=== PATIENT | female | born 1940 | race Caucasian/White ===

== ENCOUNTER 2016-11-28 15:48 | Inpatient (IN) | payer OTHER, MEDICARE ==
[~2016-11-28] VITALS: Ht 167.6 cm; Wt 68.0 kg
--- NOTE | 2016-11-28 17:15 | ED GENERAL ADULT ---
History of Present Illness General Chief Complaint: General Adult Stated Complaint: BIBA FOR R LEG PAIN X 2 MONTHS Source: patient Exam Limitations: no limitations Allergies Coded Allergies: Penicillins (11/28/16) Reconcile Medications Aspirin (Aspirin*) 81 MG TAB.CHEW 81 MG PO DAILY HEART/BLOOD (Reported) Propranolol HCl 20 MG TABLET 0.5 TAB PO DAILY BP (Reported) Triamterene/Hydrochlorothiazid (Triamterene-Hctz 75-50 MG Tab) 75 MG-50 MG TABLET 0.5 TAB PO DAILY BP (Reported) Triage Note: BBA, C/O RIGHT THIGH PAIN THAT STARTED IN August WAS BENDING OVER PUTTING ON [place] AND HEARD A POP IN RIGHT LEG THAT RADIATES TO R KNEE INCREASED PAIN 9/10 WHEN STANDING, NOTED 2 PLUS PITTONG EDEMA IN LOWER EXT, DID HAVE BREAST CA IN 2008 WITH A LUMP REMOVED BUT NO CHEMO, SELF DX NOW STATING I HAVE RIGHT SIDED BREAST CA AGAIN. Triage Nurses Notes Reviewed? yes Onset: Gradual Duration: getting worse Severity: severe Severity Numbers: 7 HPI: Patient is a 76 year old female with a past medical history of right breast cancer in which patient does presents with her retired [employer] Dr. Esparza who currently is just a friend who it is noted that in 2008 patient had ultrasounds and lumpectomy confirming carcinoma the right breast however patient declined any invasive therapy or treatment. Patient states that the right breast has progressively worsened and now is swollen and discharging of purulence and blood in which she changes her wounds once a day. Patient states that she's lost 45 pounds in the past year. Patient also states that in the fall of last year she twisted her right hip and since he's been complaining of worsening pain to the right hip all the way down to the right leg into her toes. Patient states that she is unable to ambulate due to significant pain. Patient states that from time to time she is twisted her right leg made her symptoms worse. Patient was using CANE however, Patient states in the past few days the right hip pain has been worse the patient is unable to tolerate weightbearing activities Patient was brought in by ambulance. She lives in a private residence and patient is DNR/DNI (JE RENE,ELIZABETH) Vital Signs & Intake/Output Vital Signs & Intake/Output Vital Signs Date Time Temp Pulse Resp B/P Pulse O2 O2 Flow FiO2 Ox Delivery Rate 11/28 2027 96.3 107 18 186/80 95 Room Air 11/28 1554 96.7 96 20 160/80 96 Room Air Past History Travel History Traveled to [place] past 21 day No Medical History Any Pertinent Medical History? see below for history Cancer(s): breast cancer Surgical History Surgical History: non-contributory Family History Hx Contributory? No (ELIZABETH ROCHA) Review of Systems Review of Systems Constitutional: Reports: see HPI. EENTM: Reports: no symptoms. Respiratory: Reports: no symptoms. Cardiovascular: Reports: no symptoms. GI: Reports: no symptoms. Genitourinary: Reports: no symptoms. Musculoskeletal: Reports: see HPI. Skin: Reports: see HPI. Neurological/Psychological: Reports: no symptoms. Hematologic/Endocrine: Reports: no symptoms. Immunologic/Allergic: Reports: no symptoms. All Other Systems: Reviewed and Negative (ELIZABETH ROCHA) Physical Exam Physical Exam General Appearance: no apparent distress, alert, comfortable Comments: Well-developed well-nourished person in no acute distress HEENT: Normal EENT exam, Neck: Supple, no lymphadenopathy, normal range of motion without pain or tenderness Back: Nontender, no CVA tenderness. Cardiovascular: Regular rate and rhythms no murmurs rubs or gallops, normal JVP Respiratory: Chest nontender. No respiratory distress.breath sounds clear to auscultation bilaterally Abdomen: Soft, nontender nondistended, no appreciable organomegaly. Normal bowel sounds. No ascites Extremity: Right leg normal inspection dermatomes intact Right hip generalized point tenderness noted, patient unable to tolerate straight leg raise Right hip normal inspection decreased active range of motion noted generalized point tenderness noted Neuro: Alert oriented x3, motor sensory normal, Skin: No appreciable rash on exposed skin, skin is warm and dry. Psych: Mood and affect is normal, memory and judgment is normal. Core Measures ACS in differential dx? No CVA/TIA Diagnosis: No Severe Sepsis Present: No Septic Shock Present: No Diagram Body: 1) Significant large macerated open ulcer to the right breast with mild active discharge and bleeding severe point tenderness noted (ELIZABETH ROCHA) Progress Differential Diagnoses I considered the following diagnoses in my evaluation of the patient: [ Metastasis, pathological fracture, cancer, electrolyte abnormality, sepsis,] Diagnostic Imaging: Viewed by Me: CT Scan. Radiology Impression: acute abnormality Initial ED EKG: none Comments: PATIENT: SUSAN POLO PRESENT AGE: 76 PATIENT ACCOUNT NO: [id number] : 40 LOCATION: [facility] ORDERING PHYSICIAN: ELIZABETH RENE SERVICE DATE: 11/28/16 EXAM TYPE: CAT - CT ABD & PELVIS W IV CONTRAST; CT CHEST W IV CONTRAST; CT LOWER EXT W IV CONTRAST EXAMINATION: CT CHEST,ABDOMEN, PELVIS AND RIGHT LOWER EXTREMITY WITH CONTRAST CLINICAL INFORMATION: The patient received a diagnosis of breast cancer on the right side a few years ago but did not undergo any therapy at that time. Now presents with question breast necrosis and pain and pain in the right leg, femur to toes. goCOMPARISON: None TECHNIQUE: Multidetector volumetric imaging was performed of the chest, abdomen, and pelvis after the IV administration of 94 mL of Optiray 320 intravenous contrast. Sagittal and coronal reformatted images were obtained on the technologist's workstation. Additional scans were obtained of the right lower extremity from right hip to the right foot with corresponding reformats obtained at the workstation. DLP: 3649 mGy-cm FINDINGS: CHEST: Not only is there a large spiculated mass in the right breast measuring over 6 cm associated with skin thickening and a satellite nodule but numerous metastatic lymph nodes extending to the right axilla and chest wall. Small nodes are seen in the left axilla and a slightly lobulated 1.8 cm diameter mass is located in the left breast. The lungs are clear showing no sign of metastatic disease. The mediastinum or hilar regions are normal. There is no pleural effusion or evidence of pleural masses. LIVER, GALLBLADDER, AND BILIARY TREE: Liver is normal in size and attenuation. A 1 cm hypodense nodule in Couinaud segment 8 is most likely benign and represents a hemangioma due to its relationship with the adjacent hepatic vein. Bile ducts are not dilated. Gallbladder contains gallstone`(s) and the gallbladder wall is slightly thickened but otherwise unremarkable. PANCREAS: Atrophic. SPLEEN: No focal disease. ADRENAL GLANDS: Unremarkable. KIDNEYS AND URETERS: Left kidney is unremarkable. A large exophytic enhancing mass measuring 5.8 cm in diameter arises from the lower pole of the right kidney This represents a primary renal cell carcinoma. There is no hydronephrosis and the ureters are not dilated. BLADDER: Distended and normal. GASTROINTESTINAL TRACT: Multiple diverticula arise in the left colon but there is no sign of diverticulitis. The stomach and small bowel are normal. The appendix is normal. There is no free fluid. ABDOMINAL WALL: No metastases. LYMPH NODES: There is no bulk adenopathy in the abdomen or pelvis. VASCULAR: The aorta is arteriosclerotic. PELVIC VISCERA: Uterus is postmenopausal in size. The adnexa are normal. OSSEOUS STRUCTURES: The lytic bone metastases to the vertebral bodies and posterior elements of the spine are too numerous to count at all levels. Metastatic osteolytic foci are seen in the pelvis and in the right femoral neck and proximal left femur. Right lower extremity: There is total destruction of the intertrochanteric region of the right hip and adjacent osseous lytic metastases to the cortex of the proximal femur. In fact, there is probably in all likelihood pathologic fracture(s) at this location. The knee joint and leg are probably normal. IMPRESSION: 1. Large right sided breast cancer with satellite nodule and multiple bina metastases to the right axilla. Breast nodule left side. 2. Renal cell carcinoma, right kidney. (Metachronous primary) 3. Cholelithiasis. Probable chronic cholecystitis. 4. 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 5. Pathologic fracture of the proximal right femur. DICTATED BY: ASHLEIGH ROLDAN MD DATE/TIME DICTATED:11/28/162015 GLASS BEVELLER:JESSICA (ELIZABETH ROCHA) Plan of Care: Orders Procedure Date/time Status Regular Diet 11/29 B Active Saline Lock 11/28 2313 Active Misc Message 11/28 2313 Active ED Holding Orders 11/28 2313 Active Vital Signs 11/28 2313 Active Code Status 11/28 2313 Active Patient Data 11/[address] in observation 11/[address] in observation 11/28 2255 Active Intake & Output 11/28 1846 Active URINALYSIS 11/28 171 Complete COMPREHENSIVE METABOLIC PANEL 11/28 1712 Complete CBC WITHOUT DIFFERENTIAL 11/28 1712 Complete Current Medications Sig/Matty Start time Last Medication Dose Stop Time Status Admin Diazepam 5 MG ONCE ONE 11/28 173 CAN (Valium) 11/28 1731 Laboratory Tests 11/28/162022: Urine Color STRAW, Urine Clarity CLEAR, Urine pH 6.0, Ur Specific Barnum 1.010, Urine Protein NEG, Urine Ketones NEG, Urine Nitrite NEG, Urine Bilirubin NEG, Urine Urobilinogen 0.2, Ur Leukocyte Esterase NEG, Ur Microscopic EXAM NOT REQUIRED, Urine Hemoglobin NEG, Urine Glucose NEG 11/28/16 1734: Anion Gap 14, Estimated GFR > 60, BUN/Creatinine Ratio 28.9 H, Glucose 91, Calcium 12.0 H, Total Bilirubin 1.2, AST 59 H, ALT 38, Alkaline Phosphatase 123, Total Protein 7.7, Albumin 4.4, Globulin 3.3, Albumin/Globulin Ratio 1.3, CBC w Diff NO MAN DIFF REQ, RBC 4.38, MCV 93.6, MCH 30.8, RDW 13.8, MPV 9.0, Gran % 79.2 H, Lymphocytes % 9.6 L, Monocytes % 9.9 H, Eosinophils % 0.7, Basophils % 0.6, Absolute Granulocytes 9.9 H, Absolute Lymphocytes 1.2, Absolute Monocytes 1.2 H, Absolute Eosinophils 0.1, Absolute Basophils 0.1, PUBS MCHC 32.9 L Patient currently on initial examination was in no apparent distress and declines pain medications however it was noted to me the patient had muscle spasms in the right leg causing her to have severe pain which Valium significantly improved symptoms. After CT scan was resulted Dr. Rodriguez and I had a long discussion with patient about results of concern to metastasis and pathological fracture in which patient was given options for disposition planning which patient was requesting evaluation of hospice. Patient was given another dose of Valium due to recurrence of pain and muscle spasms. I gave CT scan report and went over all results. To the right breast nursing staff applied TEFLA PAD AND TAPE FOR ACTIVE DISCHARGE I also placed a call to Dr. Esparza who is power of securities attorney and was made aware of results and disposition plan Case management will set up hospice evaluation tomorrow (ELIZABETH ROCHA) Departure Departure Disposition: STILL A PATIENT Condition: Stable Clinical Impression Primary Impression: Carcinoma of breast metastatic to bone Secondary Impressions: Pathologic fracture of femur Referrals: ASH CASANOVA DO (PCP/Family) Departure Forms: Customer Survey General Discharge Information Observation Note Spoke With: TRES LACY MD Physician Advisor Notified: TRENA MCKEON,TORRES Jimenez Place Patient In: Non-ED OBS Care Area Rationale for Observation: My rational for observation is as follows [Dr. Rodriguez discussed patient with Dr. LACY who agrees with ADMISSION observation for concerns of possible hospice placement. Patient requires COMFORT measures, IV pain management. Outpatient treatment due to concerning diagnosis of pathological hip fracture and metastasis would be medically harmful]. (ELIZABETH ROCHA) PA/JOB SITE SUPERINTENDENT Co-Sign Statement Statement: ED Attending supervision documentation- [X] I saw and evaluated the patient. I have also reviewed all the pertinent lab results and diagnostic results. I agree with the findings and the plan of care as documented in the PA's/JOB SITE SUPERINTENDENT's documentation. [] I have reviewed the ED Record and agree with the PA's/JOB SITE SUPERINTENDENT's documentation. [] Additions or exceptions (if any) to the PAs/JOB SITE SUPERINTENDENT's note and plan are summarized below: [] (CARMEN MCKEON,CARTER Aviles) PA/JOB SITE SUPERINTENDENT Co-Sign Statement Statement: ED Attending supervision documentation- [X] I saw and evaluated the patient. I have also reviewed all the pertinent lab results and diagnostic results. I agree with the findings and the plan of care as documented in the PA's/JOB SITE SUPERINTENDENT's documentation. [] I have reviewed the ED Record and agree with the PA's/JOB SITE SUPERINTENDENT's documentation. [] Additions or exceptions (if any) to the PAs/JOB SITE SUPERINTENDENT's note and plan are summarized below: [[place] discussion with the patient regarding her symptoms and the findings. Patient states that she has no family and no children and she does have) however she does not want to be a burden on them. Patient states that she refused to have chemotherapy and radiation 10 years ago and she declined and refused to have it again. Patient understands the prognosis and wishes just to be kept comfortable and not to be a burden on anybody. At this point patient will be placed in 23 hour observation and hospice consultation will be obtained.] (BRENDAN MCKEON,RAINA Jimenez) Critical Care Note Critical Care Note Critical Care Time: non-applicable (ELIZABETH ROCHA)
[2016-11-28] MEDS ORDERED: PROPRANOLOL HCL20 M1 PO (17:41)
[2016-11-28] MEDS ORDERED: HYDROCHLOROTHIA50 M1 PO (17:43)
[2016-11-28] MEDS ORDERED: ASPIRIN81 M4 PO (17:44)
--- NOTE | 2016-11-28 17:45 | NUR ---
CHANGED DRESSING TO RIGHT BREAST
--- NOTE | 2016-11-28 18:00 | NUR ---
REG MEAL GIVEN TO PT
[2016-11-28 18:01] LABS: ABSOLUTE BASOPHIL COUNT 0.1 /CUMM (0.0-0.2); ABSOLUTE EOSINOPHIL COUNT 0.1 /CUMM (0.0-0.7); ABSOLUTE GRANULOCYTE CT 9.9 /CUMM (1.4-6.5); ABSOLUTE LYMPH COUNT 1.2 /CUMM (1.2-3.4); ABSOLUTE MONOCYTE COUNT 1.2 /CUMM (0.10-0.60); BASOPHIL % 0.6 % (0.0-2.0); EOSINOPHIL % 0.7 % (0-5); GRANULOCYTE % 79.2 % (42.2-75.2); MEAN CORPUSCULAR HGB 30.8 PG (27.0-31.0); MEAN CORPUSCULAR HGB CONC 32.9 G/DL (33.0-37.0); MEAN CORPUSCULAR VOLUME 93.6 FL (81.0-99.0); PLATELET COUNT 284 /CUMM (130-400); RBC DISTRIBUTION WIDTH 13.8 % (11.5-14.5); RED BLOOD CELL CT 4.38 /CUMM (4.20-5.40); WHITE BLOOD CELL COUNT 12.5 /CUMM (4.8-10.8)
--- NOTE | 2016-11-28 18:44 | NUR ---
TO CAT SCAN
--- NOTE | 2016-11-28 20:26 | NUR ---
URINE TRIO COLLECTED AND SENT TO THE LAB
--- NOTE | 2016-11-28 21:34 | CT SCAN REPORT ---
EXAMINATION: CT CHEST,ABDOMEN, PELVIS AND RIGHT LOWER EXTREMITY WITH CONTRAST CLINICAL INFORMATION: The patient received a diagnosis of breast cancer on the right side a few years ago but did not undergo any therapy at that time. Now presents with question breast necrosis and pain and pain in the right leg, femur to toes. goCOMPARISON: None TECHNIQUE: Multidetector volumetric imaging was performed of the chest, abdomen, and pelvis after the IV administration of 94 mL of Optiray 320 intravenous contrast. Sagittal and coronal reformatted images were obtained on the technologist's workstation. Additional scans were obtained of the right lower extremity from right hip to the right foot with corresponding reformats obtained at the workstation. DLP: 3649 mGy-cm FINDINGS: CHEST: Not only is there a large spiculated mass in the right breast measuring over 6 cm associated with skin thickening and a satellite nodule but numerous metastatic lymph nodes extending to the right axilla and chest wall. Small nodes are seen in the left axilla and a slightly lobulated 1.8 cm diameter mass is located in the left breast. The lungs are clear showing no sign of metastatic disease. The mediastinum or hilar regions are normal. There is no pleural effusion or evidence of pleural masses. LIVER, GALLBLADDER, AND BILIARY TREE: Liver is normal in size and attenuation. A 1 cm hypodense nodule in Couinaud segment 8 is most likely benign and represents a hemangioma due to its relationship with the adjacent hepatic vein. Bile ducts are not dilated. Gallbladder contains gallstone`(s) and the gallbladder wall is slightly thickened but otherwise unremarkable. PANCREAS: Atrophic. SPLEEN: No focal disease. ADRENAL GLANDS: Unremarkable. KIDNEYS AND URETERS: Left kidney is unremarkable. A large exophytic enhancing mass measuring 5.8 cm in diameter arises from the lower pole of the right kidney This represents a primary renal cell carcinoma. There is no hydronephrosis and the ureters are not dilated. BLADDER: Distended and normal. GASTROINTESTINAL TRACT: Multiple diverticula arise in the left colon but there is no sign of diverticulitis. The stomach and small bowel are normal. The appendix is normal. There is no free fluid. ABDOMINAL WALL: No metastases. LYMPH NODES: There is no bulk adenopathy in the abdomen or pelvis. VASCULAR: The aorta is arteriosclerotic. PELVIC VISCERA: Uterus is postmenopausal in size. The adnexa are normal. OSSEOUS STRUCTURES: The lytic bone metastases to the vertebral bodies and posterior elements of the spine are too numerous to count at all levels. Metastatic osteolytic foci are seen in the pelvis and in the right femoral neck and proximal left femur. Right lower extremity: There is total destruction of the intertrochanteric region of the right hip and adjacent osseous lytic metastases to the cortex of the proximal femur. In fact, there is probably in all likelihood pathologic fracture(s) at this location. The knee joint and leg are probably normal. IMPRESSION: 1. Large right sided breast cancer with satellite nodule and multiple bina metastases to the right axilla. Breast nodule left side. 2. Renal cell carcinoma, right kidney. (Metachronous primary) 3. Cholelithiasis. Probable chronic cholecystitis. 4. 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 5. Pathologic fracture of the proximal right femur.
--- NOTE | 2016-11-28 21:59 | NUR ---
AFTER VALIUM C/O WEIGHT BEARING AT 5/10 ON PAIN SCALE
[2016-11-28] MEDS ORDERED: TRIAMTERENE-HC1 EAC2 PO (22:29)
--- NOTE | 2016-11-28 23:00 | NUR ---
Case Mgmnt TSF: I placed a call to [facility] to please call me back. Ayana is the clinical rehabilitation specialist nurse. CM continuing to follow.
--- NOTE | 2016-11-28 23:05 | NUR ---
Case Mgmnt TSF: I received a call back from Ayana at [facility]. I asked them to please meet with the patient tomorrow. Patient's request is to come and see her after 1400pm as her best friend will be there with her. She would like them to be there with her. I passed along the message to [facility]. CM continuing to follow.
--- NOTE | 2016-11-28 23:45 | NUR ---
PLACED IN HOSP BED. Sudha GUTIERREZ SATURATED W/BLOODY SERO-SANG DRAINAGE--CHANGED AND DEEPAK GUTIERREZ PLACED. AWAITING HOUSE STAFF.
--- NOTE | 2016-11-29 01:37 | NUR ---
HOUSE STAFF HERE TO EILEEN. Sudha BREAST DRSG CHANGED--TELFA W/PAPER TAPE APPLIED.
--- NOTE | 2016-11-29 01:50 | NUR ---
ASSISTED OUT OF BED ONTO COMMODE USING WALKER. VOIDED 300ML
--- NOTE | 2016-11-29 02:16 | History & Physical ---
MONIKA JIMENES MD 11/29/16 0215: General Information and HPI MD Statement: I have seen and personally examined SUSAN POLO and documented this H&P. The patient is a 76 year old F who presented with a patient stated chief complaint of []. Source of Information: patient History of Present Illness: Patient is a 76-year-old female with significant past medical history of hypertension, breast cancer in 2008, status post lumpectomy (without any radiotherapy and chemotherapy), recurrence and metastasis to bone presented with chief c/o unable to get up from bed. In ED , CT chest, abdomen and pelvis was done which showed metastases to right axilla, osteolytic bone metastasis, pathological fracture of proximal right femur and renal cell carcinoma of the right kidney. After seeing the CT scan, ED, discussed with the patient about her clinical status and the prognosis of the disease and goals of care. The patient understood her medical condition and decided to change her CODE STATUS to comfort measure and requested for hospice evaluation. She told that her electronics installer, Dr. Esparza is her power of airline operations agent. She want to wait for her to decide with hospice care Allergies/Medications Allergies: Coded Allergies: Penicillins (11/28/16) Home Med list Aspirin (Aspirin*) 81 MG TAB.CHEW 81 MG PO DAILY HEART/BLOOD (Reported) Propranolol HCl 20 MG TABLET 0.5 TAB PO DAILY BP (Reported) Triamterene/Hydrochlorothiazid (Triamterene-Hctz 75-50 MG Tab) 75 MG-50 MG TABLET 0.5 TAB PO DAILY BP (Reported) Past History Travel History Traveled to [place] past 21 day No Medical History Neurological: NONE EENT: NONE Cardiovascular: hypertension Respiratory: NONE Gastrointestinal: NONE Hepatic: NONE Renal: NONE Musculoskeletal: NONE Psychiatric: NONE Endocrine: NONE Cancer(s): breast cancer Surgical History Surgical History: lumpectomy Past Family/Social History Psychosocial History ETOH Use: denies use Review of Systems Review of Systems Constitutional: Reports: weakness. EENTM: Reports: hearing changes. Cardiovascular: Denies: chest pain, edema, orthopena, palpitations, peripheral edema, syncope. Respiratory: Denies: cough, hemoptysis, orthopnea, short of breath, sputum production, stridor, wheezing. GI: Denies: abdominal pain, bloating, constipation, diarrhea. Genitourinary: Denies: no symptoms. Musculoskeletal: Reports: back pain, joint pain. Skin: Denies: no symptoms. Neurological/Psychological: Reports: anxiety, depressed. Exam & Diagnostic Data Last 24 Hrs of Vital Signs/I&O Vital Signs Date Time Temp Pulse Resp B/P Pulse O2 O2 Flow FiO2 Ox Delivery Rate 11/29 0005 97.8 90 16 170/77 97 Room Air Room Air 11/28 2027 96.3 107 18 186/80 95 Room Air 11/28 1554 96.7 96 20 160/80 96 Room Air Intake & Output 11/29 0800 11/29 0000 11/28 1600 Intake Total Output Total 400 Balance -400 Output, Urine 400 Patient 68.039 kg Weight Physical Exam General Appearance Alert, Oriented X3, Cooperative, No Acute Distress Skin No Rashes, No Breakdown, there is a big open ulcer on right side of chest, secondary to local metasasis to skin. HEENT Atraumatic, PERRLA, EOMI Neck Supple, No JVD Cardiovascular Normal S1, Normal S2, murmur Lungs Clear to Auscultation, Normal Air Movement Abdomen Soft, No Tenderness Neurological Normal Speech Extremities No Clubbing, No Cyanosis, No Edema Vascular Normal Pulses, Pulses Symmetrical Last 24 Hrs of Labs/[place]: Laboratory Tests 11/28/162022: Urine Color STRAW, Urine Clarity CLEAR, Urine pH 6.0, Ur Specific [place] 1.010, Urine Protein NEG, Urine Ketones NEG, Urine Nitrite NEG, Urine Bilirubin NEG, Urine Urobilinogen 0.2, Ur Leukocyte Esterase NEG, Ur Microscopic EXAM NOT REQUIRED, Urine Hemoglobin NEG, Urine Glucose NEG 11/28/16 1734: Anion Gap 14, Estimated GFR > 60, BUN/Creatinine Ratio 28.9 H, Glucose 91, Calcium 12.0 H, Total Bilirubin 1.2, AST 59 H, ALT 38, Alkaline Phosphatase 123, Total Protein 7.7, Albumin 4.4, Globulin 3.3, Albumin/Globulin Ratio 1.3, CBC w Diff NO MAN DIFF REQ, RBC 4.38, MCV 93.6, MCH 30.8, RDW 13.8, MPV 9.0, Gran % 79.2 H, Lymphocytes % 9.6 L, Monocytes % 9.9 H, Eosinophils % 0.7, Basophils % 0.6, Absolute Granulocytes 9.9 H, Absolute Lymphocytes 1.2, Absolute Monocytes 1.2 H, Absolute Eosinophils 0.1, Absolute Basophils 0.1, PUBS MCHC 32.9 L Diagnostic Data Other Results CT chest, abdomen and pelvis - 1. Large right sided breast cancer with satellite nodule and multiple bina metastases to the right axilla. Breast nodule left side. 2. Renal cell carcinoma, right kidney. (Metachronous primary) 3. Cholelithiasis. Probable chronic cholecystitis. 4. 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 5. Pathologic fracture of the proximal right femur. Assessment/Plan Assessment: Patient is a 76-year-old female with significant past medical history of hypertension, breast cancer in 2008, status post lumpectomy (without any radiotherapy and chemotherapy), recurrence and metastasis to bone presented with chief c/o unable to get up from bed. Vital signs at the time of admission -temperature 96.7, pulse 96, respiratory rate 20, blood pressure 160/80, SPO2 96% on room air Problem list - 1. Waiting for hospice evaluation 2. Right-sided breast cancer with satellite nodule and multiple metastasis to bone 3. Fracture of the proximal right femur 4. Cholelithiasis with chronic cholecystitis 5. Hypertension 6. Renal cell carcinoma Pertinent labs - WBC 12.5,Na -136, chloride 95, BUN 26, urine normal Plan- * As after discussion with ED physician, patient decided for comfort care and waiting for hospice evaluation. * We will start her on Xanax 0.5 mg 3 times a day\ * We will give pain medication according to the pain score * We'll also continue antihypertensive medication including amlodipine, but avoid furosemide. * Patient wanted some help with the sleep, we will start her on melatonin and if needed, then remelteon. As Ranked By This Provider Problem List: 1. Breast cancer metastasized to bone 2. Hypertension 3. Renal cell carcinoma 4. Closed femur fracture Core Measures/Miscellaneous Acute Coronary Syndrome ACS Diagnosis: No Cerebrovascular Accident CVA/TIA Diagnosis: No Congestive Heart Failure CHF Diagnosis: No Venous Thromboembolism VTE Risk Factors: Age > 40 VTE Prophylaxis Ordered Inpt: Mechanical (ALPS/TEDS) [facility] prophylaxis d/t: No contraindications No VTE Pharm Prophylaxis d/t: No contraindications VTE Diagnosis: No VTE Type: NONE VTE Confirmed by (Test): NONE Severe Sepsis Severe Sepsis Present: No Septic Shock Septic Shock Present: No Miscellaneous Documentation Attending Case Discussed With: MANN MCKEON,MOHIT Mckeon Primary Care Physician: ASH CASANOVA DO Patient sees these Specialists [employer] Attendant Oncologist Level of Patient Care: General Medicine HAYDEN ESQUIVEL 11/29/16 0500: Resident Review Statement Resident Statement: discussed with spring internship Other Findings: HPI as above She is 76-year-old woman with past medical history of hypertension, right breast cancer status post lumpectomy in 2008. She did not get any chemotherapy or radiotherapy for that now with recurrent right breast cancer with bony metastasis not opt for any treatment. History of right leg pain after it got twisted in last summer. Now presented in ER because she was not able to get up from sitting position and worsening pain in her right leg. CT abdomen and pelvis, chest and right lower extremity with IV contrast was done in ER showing large right-sided breast cancer and multiple bina metastases to the right axilla, renal cell carcinoma, right kidney, cholelithiasis, osteolytic bone metastases and fracture of proximal right femur. ER physician had a long discussion with patient about CAT scan results and goals of care. Patient wanted to be comfortable and requested hospice evaluation. STEREOPTIC PROJECTION TOPOGRAPHER Dr. Esparza who currently is just a friend is power of airline operations agent for her. Patient wants her friend to be present in hospital with her during hospice evaluation and consultation. She was given Valium x 2 in ER. Currently patient offers no complaints. She wants something to sleep. Upon examination of her right breast it was decided that it's reasonable to start her on by mouth antibiotics for wound infection but patient refused. We will continue her aspirin and propranolol. Blood pressure management with amlodipine. Hospice evaluation in a.m. Xanax 0.5 mg 3 times a day as needed for anxiety. Patient is comfort care for now. TRES LACY 11/29/16 0531: Attending MD Review Statement Attending Statement Attending MD Statement: examined this patient, discuss w/resident/PA/CERTIFIED NURSING ATTENDANT, agreed w/resident/PA/CERTIFIED NURSING ATTENDANT, reviewed EMR data (avail), reviewed images, amended to note Attending Assessment/Plan: CC: R leg pain PMH: HTN, breast cancer Patient came to ER for right leg pain with her retired STEREOPTIC PROJECTION TOPOGRAPHER, Dr. Esparza, who currently is just a friend and her POA. Patient states that her pain is been chronic but acutely worsened this morning and she could not get up from the bed. At baseline she was moving with the help of walker. She had history of breast cancer in 2008 for which she underwent lumpectomy but no chemotherapy or radiation, did not follow-up thereafter. Patient noticed recurrence of right breast cancer at home since August but did not seek any medical help. Patient does not have any family, recently, does not want to get treated for this cancer. Patient admits 45 pounds weight loss in the past year. She recalls multiple trivial trauma right lower extremity, for which she did not seek any medical attention. Vitals: Temperature, pulse, respiratory rate, O2 saturation within acceptable range. Blood pressure mildly elevated. On examination anxious, no acute distress , neck supple, no lymphadenopathy, no JVD, mucosa dry. CVS: S1-S2, RRR. RS: Clear to auscultate bilaterally. Abdomen: Soft, nontender, bowel sounds present. No pedal edema, peripheral perfusion and pulses normal. Patient has right breast lesion around the nipple, with skin excoriation and purulent discharge. Labs: WBC 12.5, sodium 136, BUN 26, calcium 12.0, AST 59. CT abdomen and pelvis with IV contrast, CT chest with IV contrast, CT lower extremity with IV contrast was obtain in ER : 1. Large right sided breast cancer with satellite nodule and multiple bina metastases to the right axilla. Breast nodule left side. 2. Renal cell carcinoma, right kidney. (Metachronous primary) 3. Cholelithiasis. Probable chronic cholecystitis. 4. 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 5. Pathologic fracture of the proximal right femur. A and P #1 patient has breast cancer and renal cell carcinoma right kidney, with multiple bone metastases, pathological fracture, hypercalcemia. A detailed discussion was held by ER physician with patient about the disease, prognosis and goal of care. Patient mentions comfort care measures only, and asks for hospice evaluation. Continue her home medications for now, hold diuretics as patient is volume contracted, continue amlodipine instead for blood pressure. Continue opiates, benzodiazepines as necessary. Consult hospice #2 DNR, DNI
--- NOTE | 2016-11-29 02:30 | NUR ---
SLEEPING AT THIS TIME.
--- NOTE | 2016-11-29 04:00 | NUR ---
CONTINUES TO SLEEP.
--- NOTE | 2016-11-29 05:32 | Admission Certification ---
Admission Certification Certification Statement - As attending physician, I certify that at the time of - admission, based on clinical presentation, severity of - symptoms, need for further diagnostic testing and - therapeutic interventions, and risk of adverse outcomes - without in-hospital treatment, in my clinical assessment, - this patient requires an acute hospital stay for a minimum - of two nights or longer. I have also considered psychsocial - factors such as support system, advanced age, financial - issues, cognitive issues, and failed out-patient treatments, - past re-admission history, safety of patient, and lack of - compliance as applicable. Specific rationale supporting this admission is: Pathological fracture right femur, metastatic lesions with breast cancer and renal cell carcinoma
--- NOTE | 2016-11-29 05:33 | NUR ---
PER DISPATCHER RELAY RAJNI, NURSING AUTO SERVICER KINSEY GAVE PT RM ASSIGNMENT [id number]
--- NOTE | 2016-11-29 05:59 | NUR ---
REPORT CALLED TO JORGE L LANGFORD.
--- NOTE | 2016-11-29 06:30 | NUR ---
PT ARRIVED FROM ER IN HOSPITAL BED, ASSISTED ON BEDPAN PER PT REQUEST. LARGE DRESSING COVERING RT BREAST CD&I, PER ER REPORT CHANGED JUST PRIOR TO TRANSFER TO FLOOR. PT WITH PAIN TO RLE WITH MOVEMENT.
[2016-11-29 08:19] VITALS: BP 140/80
--- NOTE | 2016-11-29 13:49 | PN- Att Addend ---
Attending Addendum Attending Brief Note Pt seen and examined at bedside. Patient is waiting for her friend Dr. Esparza to come over this afternoon before she discusses the hospice option with hospice team. Patient has currently metastatic breast cancer with pathological fracture of right femur with multiple bone metastasis and hypercalcemia. Patient does not want any further treatment for her breast cancer and wants to explore the hospice option. Discussed with patient the care plan.
[2016-11-29 16:52] VITALS: BP 132/76
--- NOTE | 2016-11-29 21:18 | NUR ---
ALERT AND ORIENTED X 3. VITAL SIGNS STABLE. DENIES CHEST PAIN. + PULSES ASSIST X 1 W/RW. DSG TO R BREAST IS C/D/I. NO DISCOMFORT NOTED WILL CONTINUE TO MONITOR
[2016-11-30 00:04] VITALS: BP 132/68
--- NOTE | 2016-11-30 07:13 | PN- Housestaff ---
See Addendum Subjective Follow-up For: -Right breast cancer with metastasis -Right renal cell carcinoma -Right hip pathological fracture Subjective: Patient was seen and examined this morning, she complained of lower back pain and right hip pain on movement. With help patient can use the walker to use the bedside commode. She denied any chest pain, abdominal pain, shortness of breath , cough, palpitation, nausea or vomiting, burning with urination. Patient was evaluated by hospice team yesterday in the presence of her friend and power of compliance attorney Dr. Esparza. Review of Systems Constitutional: Reports: see HPI. Objective Last 24 Hrs of Vital Signs/I&O Vital Signs Date Time Temp Pulse Resp B/P Pulse O2 O2 Flow FiO2 Ox Delivery Rate 11/30 1119 102 11/30 1119 102 132/70 11/30 0837 98.2 102 18 132/70 95 Room Air 11/30 0004 98.2 95 18 132/68 94 Room Air 11/29 1652 97.5 96 18 132/76 96 Room Air Intake & Output 11/30 1600 11/30 0800 11/30 0000 Intake Total Output Total 450 250 Balance -450 -250 Output, Urine 450 250 Physical Exam General Appearance: Alert, Oriented X3, Cooperative, No Acute Distress Skin: No Rashes, No Breakdown, No Significant Lesion HEENT: Atraumatic, PERRLA, EOMI, Mucous Membr. moist/pink Neck: Supple Cardiovascular: Regular Rate, Normal S1, Normal S2, No Murmurs Lungs: Clear to Auscultation, Normal Air Movement Abdomen: Normal Bowel Sounds, Soft, No Tenderness Neurological: Normal Speech, Strength at 5/5 X4 Ext, Normal Tone, Sensation Intact, Cranial Nerves 3-12 NL, Reflexes 2+ Extremities: No Clubbing, No Cyanosis, No Edema, Normal Pulses Assessment/Plan Assessment: Patient is a 76-year-old female with significant past medical history of hypertension, breast cancer in 2008, status post lumpectomy (without any radiotherapy and chemotherapy), recurrence and metastasis to bone presented with chief c/o unable to get up from bed. On admission CT chest, abdomen, pelvis, lower extremity revealed IMPRESSION: 1. Large right sided breast cancer with satellite nodule and multiple bina metastases to the right axilla. Breast nodule left side. 2. Renal cell carcinoma, right kidney. (Metachronous primary) 3. Cholelithiasis. Probable chronic cholecystitis. 4. 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 5. Pathologic fracture of the proximal right femur. Problem list - 1. Right femur pathologic fracture 2. Right-sided breast cancer with multiple metastasis to bone 3. Cholelithiasis with chronic cholecystitis 4. Hypertension 5. Right Renal cell carcinoma Plan #Right femur pathologic fracture -Patient wanted comfort care measures and hospice evaluation on admission, hospice team evaluated the patient yesterday for inpatient or facility placement but her life expectancy is more than 2 month so she is illegible for outpatient or home hospice -We'll obtain orthopedic consultation for management options regarding right proximal femur fracture -PT evaluation #Right-sided breast cancer with multiple metastasis to bone -Patient refused any aggressive intervention including chemotherapy and radiotherapy in the past at time of diagnosis 2008 and in present -Patient has skin laceration of right breast, will continue dressing change BID #Cholelithiasis with chronic cholecystitis -Patient is symptomatic, normal alkaline phosphatase and bilirubin #Hypertension -Continue amlodipine 5 mg by mouth daily -Continue propranolol 10 mg daily by mouth -Continue aspirin by mouth 81 mg daily -Blood pressure is under control -Continue withholding home dose Lasix #Right Renal cell carcinoma -No signs of urinary tract obstruction at the moment #Anxiety -Patient was started on Xanax at 0.5 mg 3 times when necessary a day on admission -Patient endorsed difficulty sleeping, will start melatonin 5 mg at bedtime -Code comfort measures -DVT prophylaxis ALPS -Diet regular diet Consultation orthopedic surgery Problem List: 1. Carcinoma of breast metastatic to bone 2. Pathologic fracture of femur 3. Hypertension 4. Renal cell carcinoma Pain Ratin Pain Location: Right hip pain on ambulation Pain Goal: Pain 4 or less Pain Plan: Acetaminophen 650 mg every 6 Percocet 1 tab every 6 Morphine IV 2 mg every 6 Tomorrow's Labs & Rationales: Calcium
[2016-11-30 08:37] VITALS: BP 132/70
--- NOTE | 2016-11-30 14:50 | RADIOLOGY REPORT ---
EXAMINATION: Right hip and right femur. CLINICAL INFORMATION: Right hip fracture. COMPARISON: CT 11/28/2016. TECHNIQUE: Right hip 2 views. Right femur 2 views. FINDINGS: RIGHT HIP: There is severe lytic moth eaten appearance of right proximal femur and the ischium with demineralization consistent with metastatic disease. However there is no visible acute fracture or dislocation seen. RIGHT FEMUR: The entire right femur is visualized. The proximal femur is abnormal and appears lytic with significant demineralization but no visible fracture. The mid and the distal femur is normal. The soft tissues are normal IMPRESSION: Abnormal right proximal femur suggestive of metastatic process. There is no fracture or dislocation involving right hip or the right femur.
--- NOTE | 2016-11-30 15:07 | NUR ---
PHYSICAL THERAPY. PT CONSULT RECEIVED AND CHART REVIEWED. Pt IS CURRENTLY LOG TUMBLER W/ PATHOLOGICAL HIP FRACTURE, AWAITING ORTHO INPUT. PT WILL F/U APPROPRIATE S/P ORTHO CONSULT.
[2016-11-30 17:49] VITALS: BP 120/62
--- NOTE | 2016-11-30 19:25 | NUR ---
Referral received this am from case managers Mike Mcelroy RN. This patient is a 76 year old female, admitted to the hospital today after a 2 day stay in observation. Patient has a history of breast cancer, and metastatic disease to bones is suspected, but not yet confirmed. I met with Randa this am. She was alert and oriented, pleasant, and engaged in interview. She reports her good friends are her POA, but document patient has with her is not valid as it is dated incorrectly. I have offered to assist the patient with doing this over, and we likely will do this tomorrow. Sadly, the patient has no supplememntal insurance for co-pay days at an SNF so I beleive that an application for T-19 is likely appropriate. Mrs. Mckeon and I discussed required documentation for this application; she was expecting that her friends would be visiting today and they have access to her apartment. I have since been notified that patients friend wishes to meet with me tomorrow and I expect that I will be able to meet with him to discuss all of this. Follow. Info shared with case managers earlier today.
--- NOTE | 2016-11-30 19:33 | Cons- Orthopedic ---
General Information and HPI Consulting Request Date of Consult: 11/30/16 Requested By: MANN MCKEON,MOHIT Mckeon Reason for Consult: Impending pathologic fracture right proximal femur. Source of Information: patient Exam Limitations: no limitations History of Present Illness: I was asked by the medical service to evaluate this very pleasant 76-year-old female for treatment recommendations for an impending pathologic fracture of the right proximal femur secondary to metastatic disease. The patient's baseline condition appears to be related to breast carcinoma. She reports having undergone a lumpectomy around 2008. At that time she refused chemotherapy and radiation therapy as she felt that they were detrimental. She apparently did reasonably well in general until this past year when she developed an ulcerative lesion with drainage involving the right breast. The patient reports what sounds to be a 4+ month history of intermittent right groin and hip pain which waxed and waned. The patient reports having experienced a couple of episodes of mechanical "cracks" felt with crossing the right leg over the left thigh. She has had overall increasing difficulty with walking needing to do so recently with double canes. She has been having increasing difficulty with negotiating stairs due to a combination of right hip girdle pain and intermittent variable weakness experienced along the bilateral lower extremities. The patient's right hip girdle pain progressed overall more significantly over this past weekend. She has been in contact with a friend who is a physician-surgeon who ultimately felt that the patient needed to get over to the emergency room for evaluation. She was brought by ambulance to the [facility] emergency room for evaluation. Workup through the emergency room and eventually upon admission to the hospital has included a CAT scan of the chest and abdomen and pelvis and lower extremities. The CAT scan shows widespread metastatic disease with spread the bones throughout the axial and appendicular skeleton. The radiologist has commented that the number of metastatic lesions was too numerous to count. With respect to the patient's right hip girdle there was extensive bone destruction involving the proximal femur, mainly at the upper medial aspect of the femur with extension generally involving the intertrochanteric region and extending somewhat into the neck of the proximal femur. Additionally noted were multiple lesions involving the right hemipelvis. The patient appears to have been evaluated by the hospice team but was felt to be not indicated for inpatient hospice at this time as her life expectancy is anticipated to be more than 2 months. The patient indicates to me that she was not sure that she wanted to go to hospice anyway but was willing to listen and to be evaluated for hospice. Since the patient is not a candidate for inpatient hospice orthopedic consultation was called to discuss management of the significant bone destruction involving the patient's right proximal femur. The patient presently complains of intermittent right hip girdle pain. This is felt with shifting around in bed. She does notice some discomfort in general felt with moving the right lower extremity. She has not noticed any recent mechanical type symptoms felt with right hip motion. She believes her overall pain to be reasonably well controlled while resting in bed in the hospital. Allergies/Medications Allergies: Coded Allergies: Penicillins (11/28/16) Home Med List: Aspirin (Aspirin*) 81 MG TAB.CHEW 81 MG PO DAILY HEART/BLOOD (Reported) Propranolol HCl 20 MG TABLET 0.5 TAB PO DAILY BP (Reported) Triamterene/Hydrochlorothiazid (Triamterene-Hctz 75-50 MG Tab) 75 MG-50 MG TABLET 0.5 TAB PO DAILY BP (Reported) Current Medications: Current Medications Sig/Matty Start time Last Medication Dose Route Stop Time Status Admin Acetaminophen 650 MG Q6P PRN 11/29 0145 AC PO Alprazolam 0.5 MG TIDPRN PRN 11/29 0300 AC 11/29 PO 12/06 0259 2135 Amlodipine Besylate 5 MG DAILY 11/29 0300 AC 11/30 PO 1119 Aspirin 81 MG DAILY 11/29 1000 AC 11/30 PO 1121 Melatonin 5 MG AT BEDTIME 11/30 2200 AC PO Morphine Sulfate 2 MG Q6P PRN 11/30 1330 AC IV Oxycodone/ 1 TAB Q6P PRN 11/30 1330 AC Acetaminophen PO Propranolol HCl 10 MG DAILY 11/29 1000 AC 11/30 PO 1119 Sodium Chloride 1,000 ML Q13H 11/29 0815 DC IV 11/29 2114 Past History Medical History Blood Transfusion Hx: No Neurological: NONE EENT: NONE Cardiovascular: hypertension Respiratory: NONE Gastrointestinal: NONE Hepatic: NONE Renal: NONE Musculoskeletal: NONE Psychiatric: NONE Endocrine: NONE Blood Disorders: NONE Cancer(s): breast cancer 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 Surgical History Pertinent Surgical History: lumpectomy Psychosocial History Smoking Status: Unknown If Ever Smoked ETOH Use: denies use Exam & Diagnostic Data Vital Signs and I&O Vital Signs Date Time Temp Pulse Resp B/P Pulse O2 O2 Flow FiO2 Ox Delivery Rate 03/01 1749 97.4 88 18 120/62 95 Room Air 11/30 1733 Room Air Room Air 11/30 1119 102 11/30 1119 102 132/70 11/30 0837 98.2 102 18 132/70 95 Room Air 11/30 0004 98.2 95 18 132/68 94 Room Air Intake & Output 11/30 1600 11/30 0800 11/30 0000 11/29 1600 11/29 0800 11/29 0000 Intake Total 450 Output Total 500 450 250 700 400 Balance -50 -450 -250 -700 -400 Intake, Oral 450 Output, Urine 500 450 250 700 400 Patient 150 lb 150 lb 150 lb Weight Physical Exam: The patient is awake and alert and oriented 3. Speech is normal. Affect is appropriate. Gait is not tested and examination is very cursory essentially with with examination essentially limited to observation of the patient in bed while discussing her condition and management options. The patient does demonstrate occasional facial grimacing when shifting around in bed and she does report some right hip pain felt with the same. Cursory examination does suggest that neurovascular status to the right lower extremity is intact but again this is not evaluated in more detail at this time. Imaging Results: Review of the patient's right lower extremity CAT scan as well as x-rays of the patient's right entire femur including the hip joint and the knee joint show significant bone destruction of the proximal femur. There is some lytic erosion of the lower one half of the femoral neck though the cortical margins of the femoral neck appear to be intact. The femoral head itself shows no obvious lytic activity in the bone and the femoral head appears to be only mildly osteopenic overall. The bone destruction in the intertrochanteric region is extensive with a moth-eaten type of appearance of the intertrochanteric bone. There is more significant bony erosion medially near the lesser trochanter extending into the upper medial subtrochanteric region of the proximal femur. The remainder of the femur distal to this appears to be grossly intact. The hip joint shows minimal if any arthritic changes. The visualized right hemipelvis does show multiple lytic lesions but no kimberly fractures. The knee joint distally shows somewhat more moderate but not impressive arthritic changes. Assessment/Plan Assessment/Plan Assessment: 76-year-old female with widespread metastatic disease to bone involving axial and appendicular skeleton with significant bone destruction and erosion of the right proximal femur. Plan: The situation was discussed with the patient at length. This was actually an extensive discussion [id number] lasting close to one hour. I did indicate to the patient the nature of her metastatic disease to the right proximal femur. This was done with verbal description as well as with drawing pictures showing the areas of involvement of the proximal femur. We did discuss management options which did include "benign neglect" and not doing anything at all about the patient's right proximal femur condition. I discouraged this as it does appear that the patient's life expectancy is anticipated to be greater than 2 months. We did discuss resecting diseased bone and replacing the bone with a prosthesis. Given that the bone damage involves the femoral neck down through the subtrochanteric region of the proximal femur this would essentially require resection of roughly the proximal 1/2-1/3 of the femur making this a proximal femoral replacement type of procedure as opposed to a typical arthroplasty type of procedure. I did indicate to the patient that this is a very extensive large surgery with anticipated significant bone loss and extensive dissection of soft tissue to accomplish the proximal femoral replacement. I did indicate to the patient that there is significant risk of complications and that frankly I do not know at this point whether or not she would be expected to be able to tolerate and live through a procedure of this magnitude. I did indicate to the patient that although the proximal femur would be replaced that she would be dependent on fixation of the prosthesis and the remaining bone and that she would therefore require a prosthesis that extends into the bone as far as the knee to support the prosthesis as well as to "splint" the remaining femoral bone internally. We did also discuss alternatively stabilizing and splinting the entire femur with a long intramedullary cephalo-medullary nail. I did indicate to the patient that I thought that there was enough bone remaining in the femoral head to achieve fixation of the head with screws which would then be attached to an intramedullary nail splinting the entire length of the femur in case she develops additional metastatic bone disease further distally along the femur. I did indicate to the patient that I would recommend consideration for radiotherapy to the affected area of bone, and in particular to the femoral neck region to hopefully minimize additional erosion and spread to the femoral head which would be expected to result in loss of purchase of the screws in the femoral head. I did indicate to the patient that I felt that this was a much "smaller" operation with less dissection and which I would expect she would be able to tolerate uneventfully. The patient has indicated that she is not prepared to make a decision about any of this at this time. She wants to discuss this with her physician friend ( João Esparza) who is also her power of deputy commonwealth's attorney before she can make a decision about what she wants to do. I did offer to make tentative plans to move forward with surgical intervention with a long cephalo-medullary nail for tomorrow afternoon or evening pending approval from the patient that she would want to go with this type of device for management of her proximal femoral condition. The patient very specifically requested that we make no arrangements at all, even tentative arrangements at this time as she really has no interest in doing this tomorrow even if she decides to go with this type of device. I did indicate to the patient that if we do not do this tomorrow that I cannot guarantee that I personally would be able to do this procedure for her and that this procedure might then need to be turned over to one of my associates as I will not be available. The patient understands this and is comfortable with this but reiterates again that she does not want to make even tentative arrangements for surgery on the right femur at this time until she has had time to digest things and discuss this with her friend-power of deputy commonwealth's attorney. Problem List: 1. Breast cancer metastasized to bone Consult Acknowledgment - Thank you for your consult request. Attending MD Review Statement Attending Statement Attending MD Statement: examined this patient, I attempted several times while at the patient's bedside to personally contact the patient's friend (João Esparza M.D.) on his cell phone and on his home number. This was unsuccessful and the patient was informed that I will try to reach her friend again later this evening and that if I cannot reach her friend this evening that we will pick this up tomorrow.
[2016-11-30 23:11] VITALS: BP 122/56
--- NOTE | 2016-12-01 05:39 | Discharge Summary ---
Visit Information Visit Dates Admission Date: 11/30/16 Discharge Date: 12/08/2016 Hospital Course Course Attending Physician: Dr. Echols Primary Care Phys[facility] Course: Randa Mckeon is a pleasant 76 year old female with PMH significant for HTN, breast cancer in 2009 status post lumpectomy without radiotherapy or chemotherapy, recurrence of breast cancer with metastasis to the bone, chronic cholecystitis and right renal cell carcinoma who presented to the ED on 11/29/16 with chief complaint of inability to get up from the bed. On presentation in the ED she was accompanied by Dr. Esparza (POULTRY [employer]ESSER friend/ POA). At her baseline ambulates with a walker, lives independently and has no family members since her recently. She did endorse a 45 pound weight loss over the past 12 months. VS on admission: BP 160/80, HR 96, RR 20, SPO2 96% on RA, T 96.7 Physical exam at the time of admission: Alert and oriented in no acute distress. Skin: Large open ulcer on the right side of the chest secondary to local metastases. Extraocular muscles intact. Normal S1/S2. Lungs CTA BL with normal air movement. Abdomen was soft with no tenderness to palpation. No clubbing or edema and extremities Pertinent lab data on admission: WBC 12.5, H&H 13.5/41.0, sodium 136, chloride 95, BUN/CR 26/0.9 CT chest, abdomen, pelvis: Large right sided breast cancer with satellite nodule and multiple bina metastases to the right axilla. Breast nodule left side. Renal cell carcinoma, right kidney. (Metachronous primary) Cholelithiasis. Probable chronic cholecystitis. 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 Pathologic fracture of the proximal right femur. The following problems were addressed during the course of her hospital stay: #Right breast cancer with bone metastasis and pathological fracture, right femur : * CT on admission showed pathological fracture of proximal right femur * We obtained an orthopedic consult for recommendations regarding surgical vs conservative management. Patient was seen and evaluated by Dr. Costa with extensive discussions between the patient and POA * The option of conservative management/"benign neglect "was discussed. In the setting of likely life expectancy of greater than 2 months this option was perhaps not the preferred approach * Alternatively, the approach of resecting the diseased bone and replacement with a prosthesis was also addressed in the setting of bone damage involving the femoral neck down through the subtrochanteric region of the proximal femur however this procedure would require resection of the proximal 1/2-1/3 femur making this a proximal femur replacement as opposed to typical arthroplasty. This approach is an extensively large surgery with anticipated significant bone loss and dissection of soft tissue in order to accomplish replacement. With her current metastatic disease was highlighted that she was at risk for significant complications and the risks may outweigh potential benefits. Per Dr Costa, although the proximal femur would be replaced, she would be dependent on fixation of the prosthesis and the remaining bone and that she would therefore require a prosthesis that extends into the bone as far as the knee to support the prosthesis as well as to "splint" the remaining femoral bone internally * An alternative approach presented included stabilizing and splinting the entire femur with a long intramedullary cephalo-medullary nail. It was believed that there was enough bone remaining in the femoral head to achieve fixation of the head with screws which would then be attached to an intramedullary nail splinting the entire length of the femur in case she develops additional metastatic bone disease further distally along the femur. Dr Costa recommended consideration for radiotherapy to the affected area of bone, and in particular to the femoral neck region to hopefully minimize additional erosion and spread to the femoral head which would be expected to result in loss of purchase of the screws in the femoral head. This was felt to be a much "smaller" operation with less dissection and which she would be able to tolerate uneventfully * Dr. Costa again spoke with the patient and her POA (João Esparza M.D. - Phzb [phone]) the following day at length with regards to each of the previously presented options. Ms Mckeon mentioned that she is not interested in undergoing any surgery. She did not rule out possibility of surgery in the future but at this current moment is not interested in any intervention. * The possibility of a pathological fracture of the proximal femur with simple activities as rolling over in bed is exceptionally high and this was again reiterated to both the patient in the presence of her POA. * If the patient were to decide to change her mind and forward with surgery it was felt that the best option would be internally splinting of the bone with a long cephalo-medullary device * Patient decided to undergo right femure cephalointramedullary rodding on . She is now POD#5. The patient is progressing as expected and her pain is under adequate control. * Regarding breast cancer: No plan for hematology workup or intervention at this time per request of the patient and POA. 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 She was then transferred to telemetry floor. ACS was ruled out with serial troponin and EKGs. While on telemetry she was noted to have atrial fibrillation with episodes of rapid ventricular rate. She remains entirely asymptomatic. * She was started on metoprolol 12.5 mg PO BID which was later on changed to 25 mg PO BID for improved rate control. * Mechanic Assistant Dr. Bourgeois had long discussion with the patient and her family about the issue of long-term anticoagulation. Patient initially refused anticoagulation in view of her other issues(12/04/16) * Cardiology recommended warfarin if patient decides for anticoagulation. * She was maintained on ASA initially which was later on discontinued after the patient was started on Eliquis. * On 12/06/16 patient decided to choose anticoagulation but she refused warfarin, becuase she did not want to undergo routine blood draws to check her INR. However she is amenable to a NOAC and has agreed to eliquis 5 mg PO BID (started yesterday), continue after discharge * Echocardiogram shows normal left ventricular systolic function, mildly enlarged right heart chambers, RV systolic pressure of 44 mmHg #Hospice evaluation * Patient requested comfort care as code status on admission * Hospice evaluated patient and suggest that since life expectance is more than 2 months she is only elligible for outpatient or home hospice * We reevaluate code status with patient yesterday and she decided for DNR/DNI #Cholelithiasis with chronic cholecystitis * Patient is asymptomatic, normal alkaline phosphatase and bilirubin #HTN * She was maintained on norvasc 5 mg daily, metoprolol 25 mg PO BID * Blood pressure were monitored closely and remained well controlled throughout her hospital stay. #Right renal cell carcinoma * No current s/s urinary tract obstruction # Anxiety She was maintained on valium 2 mg TID PRN. #Constipation Patient endorsed lack of BM for several days, she was maintained on intense bowel regimen and s/p 1 suppository yesterday without BM and received suppositories. She had 1 BM yesterday and 1 this AM, AXR showed no impaction and only moderate stool. #Leukocytosis Patient developed leukocytosis to 35.3 on 12/06/2016. Repeat level on 2016 was 26. Patient remained afebrile with no complaints or clinical signs of an infection; no need to panculture. However she did not have any bowel movement since admission. ?Possibly leukomoid reaction? constipation with stressors?. Leukocytosis improved to 22.4 on 12/08/2016. * We have ordered AXR to evaluate for potential blockage which showed no impaction and only moderate stool. * Stool for C. difficile negative #DVT prophylaxis: Initially received subcutaneous Lovenox, DVT prophylaxis later on was addressed with Eliquis. #CODE STATUS: She was initially calm forte measures only CODE STATUS later on changed to DNI DNR #[facility] website was checked for the patient. Allergies: Coded Allergies: Penicillins (11/28/16) Pertinent Lab Results: Laboratory Tests 12/08/16 0640: Anion Gap 9, Estimated GFR > 60, BUN/Creatinine Ratio 47.1 H, CBC w Diff NO MAN DIFF REQ, RBC 3.33 L, MCV 93.9, MCH 31.0, RDW 14.2, MPV 8.6, Gran % 85.3 H, Lymphocytes % 5.4 L, Monocytes % 7.7, Eosinophils % 0.8, Basophils % 0.8, Absolute Granulocytes 19.1 H, Absolute Lymphocytes 1.2, Absolute Monocytes 1.7 H, Absolute Eosinophils 0.2, Absolute Basophils 0.2, PUBS MCHC 33.0 12/07/16 0700: Anion Gap 8, Estimated GFR > 60, BUN/Creatinine Ratio 37.8 H, CBC w Diff NO MAN DIFF REQ, RBC 3.05 L, MCV 93.3, MCH 31.6 H, RDW 14.3, MPV 8.6, Gran % 85.2 H, Lymphocytes % 5.9 L, Monocytes % 8.3, Eosinophils % 0.5, Basophils % 0.1, Absolute Granulocytes 22.3 H, Absolute Lymphocytes 1.5, Absolute Monocytes 2.2 H, Absolute Eosinophils 0.1, Absolute Basophils 0, PUBS MCHC 33.8 12/06/16 1654: Anion Gap 12, Estimated GFR 54 L, BUN/Creatinine Ratio 32.0 H, CBC w Diff MAN DIFF ORDERED, RBC 3.18 L, MCV 93.1, MCH 31.1 H, RDW 13.7, MPV 8.8, Gran % 87.4 H, Lymphocytes % 3.7 L, Monocytes % 8.9, Eosinophils % 0, Basophils % 0 L, Absolute Granulocytes 30.9 H, Segmented Neutrophils 89 H, Band Neutrophils 1, Absolute Lymphocytes 1.3, Lymphocytes 4 L, Monocytes 6, Absolute Monocytes 3.1 H, Absolute Eosinophils 0, Absolute Basophils 0, Platelet Estimate ADEQUATE, Normocytic RBCs VERIFIED, Poikilocytosis RARE, Anisocytosis 1+, PUBS MCHC 33.4, Fld Total RBCs Counted 100 Microbiology 12/08 714 STOOL: Clostridium difficile Toxin A & B - COMP Disposition Summary Disposition Principal Diagnosis: Difficulty with ambulation: Imaging showing pathological fracture in right femur Additional Diagnosis: Previous diagnosis of breast cancer with metastases Discharge Disposition: SNF Discharge Instructions General Discharge Information Code Status: Do Not Resucitate/Intubat Patient's Diet: Regular diet Patient's Activity: As tolerated Follow-Up Instructions/Appts: Please follow up your PCP as needed in the future Medications at Discharge Discharge Medications: Stop taking the following medications: Propranolol HCl (Propranolol HCl) 20 MG TABLET ORAL DAILY Qty = 180 Aspirin (Aspirin*) 81 MG TAB.CHEW ORAL DAILY Triamterene/Hydrochlorothiazid (Triamterene-Hctz 75-50 MG Tab) 75 MG-50 MG TABLET ORAL DAILY Qty = 90 Start taking the following new medications: Tramadol HCl (Tramadol HCl) 50 MG TABLET 1 Tablet ORAL EVERY SIX HOURS NEEDED as needed for PAIN SCALE 7-10 ( SEVERE) Qty = 30 No Refills Comments: NOT GIVEN IN HOSPITAL Acetaminophen (Tylenol) 325 MG TABLET 1 Tablet ORAL EVERY SIX HOURS NEEDED as needed for PAIN SCALE 1-3 (MILD) Qty = 30 No Refills Comments: NOT GIVEN IN HOSPITAL Alprazolam (Xanax) 0.25 MG TABLET 1 Tablet ORAL TWICE DAILY as needed for ANXIETY Qty = 20 No Refills Comments: Last Taken: 12/07 Time: 0930 Apixaban (Eliquis) 5 MG TABLET 5 Milligram ORAL TWICE DAILY Qty = 60 No Refills Comments: Last Taken: 3/9 Time: 10AM Metoprolol Tartrate (Metoprolol Tartrate) 25 MG TABLET 25 Milligram ORAL TWICE DAILY Qty = 60 No Refills Comments: Last Taken: 12/08 Time: 10AM Amlodipine Besylate (Amlodipine Besylate) 5 MG TABLET 5 Milligram ORAL DAILY Qty = 30 No Refills Comments: Last Taken: 12/08 Time: 10AM Acetaminophen (Tylenol) 325 MG TABLET 650 Milligram ORAL EVERY SIX HOURS NEEDED as needed for PAIN SCALE 1-3 ( MILD) Qty = 1 No Refills Comments: NOT GIVEN IN HOSPITAL Docusate Sodium (Docusate Sodium) 100 MG CAPSULE 100 Milligram ORAL TWICE DAILY as needed for CONSTIPATION Qty = 1 No Refills Magnesium Hydroxide (Milk Of Magnesia) 400 MG/5 ML ORAL.SUSP 30 Milliliters ORAL AT BEDTIME as needed for CONSTIPATION Qty = 1 No Refills Comments: NOT GIVEN IN HOSPITAL Sennosides/Docusate Sodium (Senna Plus Tablet) 8.6 MG-50 MG TABLET 2 Tablet ORAL DAILY as needed for Constipation Qty = 1 No Refills Comments: Last Taken: 12/08 Time: 10AM Melatonin (Melatonin) 5 MG TABLET 5 Milligram ORAL AT BEDTIME as needed for Sleep Qty = 1 No Refills Comments: Last Taken: 12/08 Time: 2130 Morphine Sulfate (Ms Contin) 30 MG TABLET.ER 0.5 Tablet ORAL EVERY 12 HOURS Qty = 1 No Refills Comments: RECEIVED OXYCONTIN IN HOSPITAL Last Taken: 12/08 Time: 1000 Copies To: OSCAR CASANOVA DO, MD,HALEIGH Hayes MD Review Statement Other Findings: I am not the discharging attending. Please see Dr Echols note for more details- Bowen Quiles
--- NOTE | 2016-12-01 07:10 | PN- Housestaff ---
See Addendum Subjective Follow-up For: -Right hip pathological fracture -Right breast cancer with bone metastasis Subjective: And was seen and examined this morning, vital signs are stable, no acute distress, no overnight events reported by the nurse or the patient. The patient is alert, oriented 3, complaining of right hip pain on ambulation 5 out of 10 that responded to atenolol sometimes, patient refused taking morphine or Percocet. Patient denied chest pain, shortness of breath, palpitation, abdominal pain, nausea or vomiting, urinary symptoms, dizziness. We will have a meeting with the patient and patient's POA and the bilingual social worker Alyssa at 10:30 this morning. Review of Systems Constitutional: Reports: see HPI. Objective Last 24 Hrs of Vital Signs/I&O Vital Signs Date Time Temp Pulse Resp B/P Pulse O2 O2 Flow FiO2 Ox Delivery Rate 12/01 1433 97.3 85 18 120/60 96 Room Air 12/01 0905 130/60 12/01 0905 160/60 12/01 0749 98.5 81 18 122/56 95 Room Air 11/30 2311 99.4 90 18 122/56 95 Room Air 11/30 1749 97.4 88 18 120/62 95 Room Air 11/30 1733 Room Air Room Air Intake & Output 12/01 1600 12/01 0800 12/01 0000 Intake Total 1800 800 Output Total 080 022 8595 Balance 1150 -450 -200 Intake, Oral 1800 800 Output, Urine 010 680 1773 Physical Exam General Appearance: Alert, Oriented X3, Cooperative, No Acute Distress Skin: No Rashes, right breast skin laceration HEENT: Atraumatic, PERRLA, EOMI, Mucous Membr. moist/pink Neck: Supple, No JVD Cardiovascular: Regular Rate, Normal S1, Normal S2, No Murmurs Lungs: Clear to Auscultation, Normal Air Movement Abdomen: Normal Bowel Sounds, Soft, No Tenderness Neurological: Normal Speech, Normal Tone, Sensation Intact, Cranial Nerves 3-12 NL, Reflexes 2+ Extremities: No Clubbing, No Cyanosis, No Edema, Normal Pulses Assessment/Plan Assessment: Patient is a 76-year-old female with significant past medical history of hypertension, breast cancer in 2008, status post lumpectomy (without any radiotherapy and chemotherapy), recurrence and metastasis to bone presented with chief c/o unable to get up from bed. On admission CT chest, abdomen, pelvis, lower extremity 11/28/16 revealed IMPRESSION: 1. Large right sided breast cancer with satellite nodule and multiple bina metastases to the right axilla. Breast nodule left side. 2. Renal cell carcinoma, right kidney. (Metachronous primary) 3. Cholelithiasis. Probable chronic cholecystitis. 4. 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 5. Pathologic fracture of the proximal right femur. X-ray right femur and right hip 11/30/16 revealed RIGHT HIP: There is severe lytic moth eaten appearance of right proximal femur and the ischium with demineralization consistent with metastatic disease. However there is no visible acute fracture or dislocation seen. RIGHT FEMUR: The entire right femur is visualized. The proximal femur is abnormal and appears lytic with significant demineralization but no visible fracture. The mid and the distal femur is normal. The soft tissues are normal IMPRESSION: Abnormal right proximal femur suggestive of metastatic process. There is no fracture or dislocation involving right hip or the right femur. Problem list 1. Right femur pathologic fracture 2. Right-sided breast cancer with multiple metastasis to bone 3. Cholelithiasis with chronic cholecystitis 4. Hypertension 5. Right Renal cell carcinoma Plan #Right femur pathologic fracture -Patient wanted comfort care measures and hospice evaluation on admission, hospice team evaluated the patient for inpatient or facility placement but her life expectancy is for more than 2 month so she is only illegible for outpatient or home hospice -Orthopedic evaluation was obtained yesterday, patient was given the options to choose from either benign neglect management, proximal femoral replacement or stabilizing and splinting the entire femur with a long intramedullary cephalo- medullary nail subsequent radiation to slow down the bone erosion and spread of metastatic tumor to the bone -The primary medical team along with the bilingual social worker Alyssa and the patient and her power of insurance attorney Dr. Lane had meeting this morning at 10:30 AM, we discussed the placement options, patient is looking for rehabilitation facility in [facility]. Patient is still struggling with decision making for hip surgery, will continue to follow. #Right-sided breast cancer with multiple metastasis to bone -Patient refused any aggressive intervention including chemotherapy and radiotherapy in the past at time of diagnosis 2008 and in present -Patient has skin laceration of right breast, will continue dressing change BID #Cholelithiasis with chronic cholecystitis -Patient is symptomatic, normal alkaline phosphatase and bilirubin #Hypertension -Continue amlodipine 5 mg by mouth daily -Continue propranolol 10 mg daily by mouth -Continue aspirin by mouth 81 mg daily -Blood pressure is under control -Continue withholding home dose Lasix #Right Renal cell carcinoma -No signs of urinary tract obstruction at the moment #Anxiety -Patient was started on Xanax at 0.5 mg 3 times when necessary a day on admission -Continue melatonin 5 mg at bedtime -Code comfort measures -DVT prophylaxis ALPS -Diet regular diet Consultation orthopedic surgery Problem List: 1. Carcinoma of breast metastatic to bone 2. Pathologic fracture of femur 3. Hypertension 4. Renal cell carcinoma 5. Closed femur fracture Pain Ratin Pain Location: Right hip Pain Goal: Pain 4 or less Pain Plan: Acetaminophen 650 mg every 6 Ibuprofen 600 mg every 6 Tramadol 50 mg every 6 Tomorrow's Labs & Rationales: NONE
[2016-12-01 07:49] VITALS: BP 122/56
--- NOTE | 2016-12-01 13:51 | NUR ---
Physical Therapy: Pt's chart reviewed this day for IE. Ortho consult mentioned potential surgical intervention. A weight bearing status has not been established. Resident paged several times. No response back. Will cx eval again today and follow up appropriate.
[2016-12-01 14:33] VITALS: BP 120/60
--- NOTE | 2016-12-01 16:56 | PN- Orthopedic ---
Surgical Brief Attending Note Brief Attending Note: I spoke with the patient's power of [place] attorney at length this afternoon (João Esparza M.D. - Hq[employer] [phone]). Dr. Esparza in turn met with the patient today and discussed the patient's options with her at length. The patient has apparently decided that as of now she has no interest in undergoing surgery for her right proximal femur lesion. She will not rule out possible surgery in the future but she does not want to do anything for the moment. With respect to surgery if she does decide to move forward eventually with surgery there is interest only in internally splinting of the bone with a long cephalo- medullary device as the option for treatment. The patient will contact our office or the patient's power of [place] attorney Dr. Esparza will contact our office if the patient changes her mind and decides that she does want to move forward with surgery which is recommended as the best course of action. The power of [place] attorney was reminded as discussed previously with the patient herself that there is an exceptionally high likelihood that she will sustain a definitive pathologic fracture of the proximal femur which could happen even when rolling over in bed. Therefore for now we will tentatively sign off of the case unless the patient changes her mind and decides that she would like to move forward with surgery.
--- NOTE | 2016-12-01 21:07 | Patient Discharge Instructions ---
Discharge Instructions General Discharge Information You were seen/treated for: Difficulty with ambulation: Imaging showing pathological fracture in right femur Watch for these problems: Sudden onset of significant pain. Brusing or swelling of the leg. No bath, but you may shower: Yes Other wound care: Clean, dry dressing change daily. May shower, no soaking or bathing Special Instructions: Please follow up with your PCP and orthopedic doctor as needed. We have provided you the contact information to reach out the Dr Edgar. Please follow up with Dr. Bourgeois within 7 days of discharge for continued management of your atrial fibrillation with Eliquis. Please work closely with physical therapy to improve gait and mobility. Please take all medications as directed. Diet Continue normal diet: Yes Activity Activity Self Limited: Yes Activity Limited to: Weight bear as tolerated (partial weight bear right leg) Acute Coronary Syndrome Inclusion Criteria At DC or during hospital stay patient has or had the following: ACS DIAGNOSIS No Discharge Core Measures Meds if any: Prescribed or Continued at Discharge Meds if any: NOT Prescribed or Continued at Discharge Congestive Heart Failure Inclusion Criteria At DC or during hospital stay patient has or had the following: CHF DIAGNOSIS No Discharge Core Measures Meds if any: Prescribed or Continued at Discharge Meds if any: NOT Prescribed or Continued at Discharge Cerebrovascular accident Inclusion Criteria At DC or during hospital stay patient has or had the following: CVA/TIA Diagnosis No Discharge Core Measures Meds if any: Prescribed or Continued at Discharge Meds if any: NOT Prescribed or Continued at Discharge Venous thromboembolism Inclusion Criteria VTE Diagnosis No VTE Type NONE VTE Confirmed by (Test) NONE Discharge Core Measures - Per Current guidelines, there needs to be overlap - treatment for the first 5 days of Warfarin therapy. - If discharged on Warfarin prior to 5 days of - overlap therapy, the patient will need to be - assessed for post discharge needs including - *Post discharge parental anticoagulation - *Warfarin and/or parental anticoagulation education - *Follow up date to check INR post discharge At least 5 days overlap therapy as Inpatient No Meds if any: Prescribed or Continued at Discharge Note: Overlap Therapy is Warfarin and Anticoagulant Meds if any: NOT Prescribed or Continued at Discharge
--- NOTE | 2016-12-01 23:50 | NUR ---
LATE ENTRY NURSING NOTE: DURING PHYSICAL ASSESSMENT & DRESSING CHANGE PT ADVISED THIS RN THAT IF SHE IS SLEEPING SHE IS NOT TO BE WOKEN UP FOR 2200 VITALS TO BE TAKEN. PT ALSO STATED TO NOT WAKE FOR ADMINISTRATION OF 2200 MELATONIN. PT WAS SLEEPING THEREFORE LIQUOR INSPECTOR AND VITALS WERE NOT TAKEN.
--- NOTE | 2016-12-02 07:11 | PN- Housestaff ---
See Addendum Subjective Follow-up For: -Right hip pathological fracture -Right breast cancer with bone metastasis Subjective: patient was seen and examined this morning, she endorsed sleeping well last night, complained of low back pain because of prolonged laying in the bed. Patient was advised to sit on the edge of the bed without weight bearing on lower extremities. She denied chest pain, shortness of breath, abdominal pain, nausea or vomiting, urinary symptoms. Her vital signs are stable, no overnight events. She is not positive yet for right femur surgery. We still waiting to hear back from her friend the power of civil rights attorney regarding rehabilitation placement, will follow up with the social group worker Alyssa. Review of Systems Constitutional: Reports: see HPI. Objective Last 24 Hrs of Vital Signs/I&O Vital Signs Date Time Temp Pulse Resp B/P Pulse O2 O2 Flow FiO2 Ox Delivery Rate 12/01 1433 97.3 85 18 120/60 96 Room Air 12/01 0905 130/60 12/01 0905 160/60 12/01 0749 98.5 81 18 122/56 95 Room Air Intake & Output 12/02 0800 12/02 0000 12/01 1600 Intake Total 739 905 6737 Output Total 650 Balance 308 923 3303 Intake, Oral 258 738 3562 Output, Urine 650 Physical Exam General Appearance: Alert, Oriented X3, Cooperative, No Acute Distress Skin: No Rashes, right breast skin laceration HEENT: Atraumatic, PERRLA, EOMI, Mucous Membr. moist/pink Neck: Supple Cardiovascular: Regular Rate, Normal S1, Normal S2, No Murmurs Lungs: Clear to Auscultation, Normal Air Movement Abdomen: Normal Bowel Sounds, Soft, No Tenderness Neurological: Normal Speech, Normal Tone, Sensation Intact, Cranial Nerves 3-12 NL Extremities: No Clubbing, No Cyanosis, No Edema, Normal Pulses Assessment/Plan Assessment: Patient is a 76-year-old female with significant past medical history of hypertension, breast cancer in 2008, status post lumpectomy (without any radiotherapy and chemotherapy), recurrence and metastasis to bone presented with chief c/o unable to get up from bed. On admission CT chest, abdomen, pelvis, lower extremity 11/28/16 revealed IMPRESSION: 1. Large right sided breast cancer with satellite nodule and multiple bina metastases to the right axilla. Breast nodule left side. 2. Renal cell carcinoma, right kidney. (Metachronous primary) 3. Cholelithiasis. Probable chronic cholecystitis. 4. 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 5. Pathologic fracture of the proximal right femur. X-ray right femur and right hip 11/30/16 revealed RIGHT HIP: There is severe lytic moth eaten appearance of right proximal femur and the ischium with demineralization consistent with metastatic disease. However there is no visible acute fracture or dislocation seen. RIGHT FEMUR: The entire right femur is visualized. The proximal femur is abnormal and appears lytic with significant demineralization but no visible fracture. The mid and the distal femur is normal. The soft tissues are normal IMPRESSION: Abnormal right proximal femur suggestive of metastatic process. There is no fracture or dislocation involving right hip or the right femur. Problem list 1. Right femur pathologic fracture 2. Right-sided breast cancer with multiple metastasis to bone 3. Cholelithiasis with chronic cholecystitis 4. Hypertension 5. Right Renal cell carcinoma Plan #Right breast cancer with bone metastasis and right femur pathologic fracture -Patient refused any aggressive intervention including chemotherapy and radiotherapy in the past at time of diagnosis 2008 and in present -Patient wanted comfort care measures and hospice evaluation on admission, hospice team evaluated the patient for inpatient or facility placement but her life expectancy is for more than 2 month so she is only illegible for outpatient or home hospice -Orthopedic evaluation was obtained yesterday, patient was given the options to choose from either benign neglect management, proximal femoral replacement or stabilizing and splinting the entire femur with a long intramedullary cephalo- medullary nail subsequent radiation to slow down the bone erosion and spread of metastatic tumor to the bone. Patient is refusing surgery -Waiting for long-term rehabilitation placement in [facility] -Patient has skin laceration of right breast, will continue dressing change BID -Continue pain management #Cholelithiasis with chronic cholecystitis -Patient is symptomatic, normal alkaline phosphatase and bilirubin #Hypertension -Continue amlodipine 5 mg by mouth daily -Continue propranolol 10 mg daily by mouth -Continue aspirin by mouth 81 mg daily -Blood pressure is under control -Continue withholding home dose Lasix #Right Renal cell carcinoma -No signs of urinary tract obstruction at the moment #Anxiety -We'll switch Xanax to Valium 2 mg 3 times a day when necessary to help with anxiety and muscle spasm -Continue melatonin 5 mg at bedtime -Code comfort measures -DVT prophylaxis ALPS, patient refused APLS during the night for 2 nights, was advised regarding the importance of having ALPS as anticoagulant, will start heparin subcutaneous -Diet regular diet Consultation orthopedic surgery Problem List: 1. Carcinoma of breast metastatic to bone 2. Pathologic fracture of femur 3. Hypertension 4. Renal cell carcinoma Pain Ratin Pain Location: lower back pain Pain Goal: Pain 4 or less Pain Plan: Acetaminophen 650 mg every 6 Ibuprofen 600 mg every 6 Tramadol 50 mg every 6 Tomorrow's Labs & Rationales: None
[2016-12-02 07:33] VITALS: BP 126/68
--- NOTE | 2016-12-02 09:34 | NUR ---
PHYSICAL THERAPY- APPRECIATE SECOND ORTHO NOTE FROM YESTERDAY PM; PER ORTHO, PT HAS DECIDED NOT TO PROCEED WITH SURGICAL MANAGEMENT AT THIS TIME. PT IS AT EXCEPTIONALLY HIGH RISK OF DEFINITIVE PATHOLOGIC R PROXIMAL FEMUR FX 2* SEVERE BONE METS W/ LYSIS AND EROSION, W/ FX IMMINENT EVEN W/ ROLLING IN BED PER MD BALDERAS. DUE TO ABOVE, IT IS UNSAFE TO PROCEED W/ ANY LEVEL OF P.T. INTERVENTION AT THIS TIME. D/W MD GARCIA WHO IS IN AGREEMENT NOT TO PROCEED W/ P.T. IF PT TO D/C TO SUBACUTE LEVEL CARE, RECOMMEND D/C BASED ON MEDICAL MGMT.
--- NOTE | 2016-12-02 13:24 | NUR ---
Met with patient and her friends João and Liliana Esparza yesterday. The majority of documentation for the T-19 application was provided and application was completed by the patient and placed in the mail to [facility] in [place] today. Additionally, the patient executed an entire set of Advance Directives which have been scanned into the EHR for review. Mrs. Mckeon has decided against surgery; case management to initiate bed search. Patient prefers bed search in the [facility] area to be close to her friends. Follow and will support case managememts efforts.
[2016-12-02 14:57] VITALS: BP 118/60
--- NOTE | 2016-12-02 17:08 | PN- Orthopedic ---
Subjective Subjective: patient 76 y/o female with metastatic breast cancer to the right femur with impending fracture. had long discussion about intramedullary rodding patient than agreed to right intramedullary rodding. Objective Vital Signs and I&Os Vital Signs Date Time Temp Pulse Resp B/P Pulse O2 O2 Flow FiO2 Ox Delivery Rate 12/02 1457 99.1 86 18 118/60 97 Room Air 12/02 1412 Room Air Room Air 12/02 1144 126/68 12/02 1144 102 126/68 12/02 0733 98.0 102 20 126/68 96 Room Air Intake & Output 12/02 1600 12/02 0800 12/02 0000 / 1600 12/01 0800 12/01 0000 Intake Total 720 350 3686 800 Output Total 400 350 224 313 4832 Balance -400 -781 726 9437 -450 -200 Intake, Oral 488 966 3214 800 Output, Urine 400 350 838 679 8759 Physical Exam General Appearance: no apparent distress, alert Extremities: normal inspection (no gross hip pain now) Assessment/Plan Assessment/Plan 76 y/o with metastatic breast cancer to right femur for intramedullary rodding tommorrow NPO past midnight. 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 No Antibiotics Is Patient on Antibiotics? No Attending MD Review Statement Attending Statement Attending MD Statement: examined this patient (saeid)
[2016-12-02 21:29] LABS: ABSOLUTE BASOPHIL COUNT 0.1 /CUMM (0.0-0.2); ABSOLUTE EOSINOPHIL COUNT 0.2 /CUMM (0.0-0.7); ABSOLUTE LYMPH COUNT 1.2 /CUMM (1.2-3.4); ABSOLUTE MONOCYTE COUNT 1.4 /CUMM (0.10-0.60); BASOPHIL % 0.7 % (0.0-2.0); EOSINOPHIL % 1.1 % (0-5); GRANULOCYTE % 79.7 % (42.2-75.2); HEMATOCRIT 38.8 % (37-47); MEAN CORPUSCULAR HGB 30.7 PG (27.0-31.0); MEAN CORPUSCULAR HGB CONC 33.1 G/DL (33.0-37.0); MEAN CORPUSCULAR VOLUME 92.6 FL (81.0-99.0); MEAN PLATELET VOLUME 8.9 FL (7.4-10.4); PLATELET COUNT 305 /CUMM (130-400); RBC DISTRIBUTION WIDTH 13.9 % (11.5-14.5); RED BLOOD CELL CT 4.19 /CUMM (4.20-5.40); WHITE BLOOD CELL COUNT 13.8 /CUMM (4.8-10.8)
[2016-12-02 21:37] LABS: PT 14.5 SEC (9.4-12.5)
[2016-12-03 07:51] VITALS: BP 148/70
--- NOTE | 2016-12-03 08:10 | NUR ---
0808 PATIENT OFF FLOOR TI THE O.R., A+O X3, ON RA, DENIES PAIN, NO S/O DISTRESS SCUB AND CHECKLIST PREVIOUSLY COMPLETED.
--- NOTE | 2016-12-03 08:16 | PN- Housestaff ---
CHRIS MCKEON,[facility] 12/03/16 0816: Subjective Follow-up For: -Right hip pathological fracture -Right breast cancer with bone metastasis Subjective: Patient was seen and examined this afternoon after the surgery. She had right femur intramedullary cephalo-medullary nail. Patient reported right hip pain of 5 out of 10 that is improving with medication. She denied any chest pain, palpitation, shortness of breath. Review of Systems Constitutional: Reports: see HPI. Objective Last 24 Hrs of Vital Signs/I&O Vital Signs Date Time Temp Pulse Resp B/P Pulse O2 O2 Flow FiO2 Ox Delivery Rate 12/03 1449 97.6 86 18 124/70 97 Room Air 12/03 0751 98.6 86 20 148/70 95 Room Air 12/02 1844 98.9 Intake & Output 12/03 1600 12/03 0800 12/03 0000 Intake Total 480 Output Total 500 Balance -20 Intake, Oral 480 Output, Urine 500 Patient 68.039 kg Weight Physical Exam General Appearance: Alert, Oriented X3, Cooperative, No Acute Distress Skin: No Rashes, No Breakdown, No Significant Lesion HEENT: Atraumatic, PERRLA, EOMI, Mucous Membr. moist/pink Neck: Supple, No JVD Cardiovascular: Regular Rate, Normal S1, Normal S2, No Murmurs Lungs: Clear to Auscultation, Normal Air Movement Abdomen: Normal Bowel Sounds, Soft, No Tenderness Neurological: Normal Speech, Strength at 5/5 X4 Ext, Normal Tone, Sensation Intact, Cranial Nerves 3-12 NL, Reflexes 2+ Extremities: No Clubbing, No Cyanosis, No Edema, Normal Pulses Assessment/Plan Assessment: Patient is a 76-year-old female with significant past medical history of hypertension, breast cancer in 2008, status post lumpectomy (without any radiotherapy and chemotherapy), recurrence and metastasis to bone presented with chief c/o unable to get up from bed. On admission CT chest, abdomen, pelvis, lower extremity 11/28/16 revealed IMPRESSION: 1. Large right sided breast cancer with satellite nodule and multiple bina metastases to the right axilla. Breast nodule left side. 2. Renal cell carcinoma, right kidney. (Metachronous primary) 3. Cholelithiasis. Probable chronic cholecystitis. 4. 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 5. Pathologic fracture of the proximal right femur. X-ray right femur and right hip 11/30/16 revealed RIGHT HIP: There is severe lytic moth eaten appearance of right proximal femur and the ischium with demineralization consistent with metastatic disease. However there is no visible acute fracture or dislocation seen. RIGHT FEMUR: The entire right femur is visualized. The proximal femur is abnormal and appears lytic with significant demineralization but no visible fracture. The mid and the distal femur is normal. The soft tissues are normal IMPRESSION: Abnormal right proximal femur suggestive of metastatic process. There is no fracture or dislocation involving right hip or the right femur. Problem list 1. Right femur pathologic fracture 2. Right-sided breast cancer with multiple metastasis to bone 3. Cholelithiasis with chronic cholecystitis 4. Hypertension 5. Right Renal cell carcinoma Plan #Right breast cancer with bone metastasis and right femur pathologic fracture -Patient refused any aggressive intervention including chemotherapy and radiotherapy in the past at time of diagnosis 2008 and in present -Patient wanted comfort care measures and hospice evaluation on admission, hospice team evaluated the patient for inpatient or facility placement but her life expectancy is for more than 2 month so she is only illegible for outpatient or home hospice -Patient had long intramedullary cephalo-medullary nail operation this morning, stable postop. -Waiting for long-term rehabilitation placement in [facility] -Patient has skin laceration of right breast, will continue dressing change BID -Continue pain management #Cholelithiasis with chronic cholecystitis -Patient is asymptomatic, normal alkaline phosphatase and bilirubin #Hypertension -Continue amlodipine 5 mg by mouth daily -Continue propranolol 10 mg daily by mouth -Continue aspirin by mouth 81 mg daily -Blood pressure is under control -Continue withholding home dose Lasix #Right Renal cell carcinoma -No signs of urinary tract obstruction at the moment #Anxiety -Continue Valium 2 mg 3 times a day when necessary to help with anxiety and muscle spasm -Continue melatonin 5 mg at bedtime -Code comfort -DVT prophylaxis Lovenox -Diet regular diet Consultation orthopedic surgery, cardiology Problem List: 1. Carcinoma of breast metastatic to bone 2. Pathologic fracture of femur 3. Renal cell carcinoma Pain Ratin Pain Location: Right hip Pain Goal: Pain 4 or less Pain Plan: Morphine injection 2 mg every 4-6 breakthrough Acetaminophen 650 mg every 6 Ibuprofen 600 mg every 6 Tramadol 50 mg every 6 Tomorrow's Labs & Rationales: CBC, CMP FEDE MCKEON,AGUILA 12/03/16 1325: Attending MD Review Statement Attending Statement Attending MD Statement: examined this patient, discuss w/resident/PA/STERILISATION TECHNICIAN, agreed w/resident/PA/STERILISATION TECHNICIAN, reviewed EMR data (avail), discussed with nursing, discussed with case mgmt, reviewed images, amended to note Attending Assessment/Plan: Patient seen and examined, came back from surgery. Had intramedullary rodding for pathological femur fracture on the right. Currently does complain of some pain. Vital Signs Date Time Temp Pulse Resp B/P Pulse O2 O2 Flow FiO2 Ox Delivery Rate 12/03 0751 98.6 86 20 148/70 95 Room Air 12/02 1844 98.9 12/02 1457 99.1 86 18 118/60 97 Room Air 12/02 1412 Room Air Room Air on exam; aox3, nad. cv; s1, s2, rrr. resp; clear abd; soft, nt, bs+ ext; no edema. ms: + dressing on rle. Laboratory Tests 12/03 12/03 0655 0650 Chemistry Sodium (137 - 145 mmol/L) 136 L Potassium (3.5 - 5.1 mmol/L) 4.2 Chloride (98 - 107 mmol/L) 97 L Carbon Dioxide (22 - 30 mmol/L) 28 Anion Gap (5 - 16) 11 BUN (7 - 17 mg/dL) 23 H Creatinine (0.5 - 1.0 mg/dL) 0.8 Estimated GFR (>60 ml/min) > 60 BUN/Creatinine Ratio (7 - 25 %) 28.8 H Coagulation PT (9.4 - 12.5 SEC) 13.7 H INR (0.90 - 1.19) 1.31 H Hematology CBC w Diff NO MAN DIFF REQ WBC (4.8 - 10.8 /CUMM) 12.0 H RBC (4.20 - 5.40 /CUMM) 4.24 Hgb (12.0 - 16.0 G/DL) 13.3 Hct (37 - 47 %) 39.7 MCV (81.0 - 99.0 FL) 93.6 MCH (27.0 - 31.0 PG) 31.3 H RDW (11.5 - 14.5 %) 13.8 Plt Count (130 - 400 /CUMM) 274 MPV (7.4 - 10.4 FL) 9.3 Gran % (42.2 - 75.2 %) 77.9 H Lymphocytes % (20.5 - 51.1 %) 9.0 L Monocytes % (1.7 - 9.3 %) 11.8 H Eosinophils % (0 - 5 %) 0.9 Basophils % (0.0 - 2.0 %) 0.4 Absolute Granulocytes (1.4 - 6.5 /CUMM) 9.3 H Absolute Lymphocytes (1.2 - 3.4 /CUMM) 1.1 L Absolute Monocytes (0.10 - 0.60 /CUMM) 1.4 H Absolute Eosinophils (0.0 - 0.7 /CUMM) 0.1 Absolute Basophils (0.0 - 0.2 /CUMM) 0 PUBS MCHC (33.0 - 37.0 G/DL) 33.5 03/03 2113 Chemistry Sodium (137 - 145 mmol/L) 131 L Potassium (3.5 - 5.1 mmol/L) 4.1 Chloride (98 - 107 mmol/L) 94 L Carbon Dioxide (22 - 30 mmol/L) 28 Anion Gap (5 - 16) 10 BUN (7 - 17 mg/dL) 22 H Creatinine (0.5 - 1.0 mg/dL) 0.8 Estimated GFR (>60 ml/min) > 60 BUN/Creatinine Ratio (7 - 25 %) 27.5 H Coagulation PT (9.4 - 12.5 SEC) 14.5 H INR (0.90 - 1.19) 1.39 H Hematology CBC w Diff NO MAN DIFF REQ WBC (4.8 - 10.8 /CUMM) 13.8 H RBC (4.20 - 5.40 /CUMM) 4.19 L Hgb (12.0 - 16.0 G/DL) 12.8 Hct (37 - 47 %) 38.8 MCV (81.0 - 99.0 FL) 92.6 MCH (27.0 - 31.0 PG) 30.7 RDW (11.5 - 14.5 %) 13.9 Plt Count (130 - 400 /CUMM) 305 MPV (7.4 - 10.4 FL) 8.9 Gran % (42.2 - 75.2 %) 79.7 H Lymphocytes % (20.5 - 51.1 %) 8.6 L Monocytes % (1.7 - 9.3 %) 9.9 H Eosinophils % (0 - 5 %) 1.1 Basophils % (0.0 - 2.0 %) 0.7 Absolute Granulocytes (1.4 - 6.5 /CUMM) 11.0 H Absolute Lymphocytes (1.2 - 3.4 /CUMM) 1.2 Absolute Monocytes (0.10 - 0.60 /CUMM) 1.4 H Absolute Eosinophils (0.0 - 0.7 /CUMM) 0.2 Absolute Basophils (0.0 - 0.2 /CUMM) 0.1 PUBS MCHC (33.0 - 37.0 G/DL) 33.1 A/P; 76-year-old female with past medical history significant for metastatic breast cancer with metastases to bone is admitted with the pathological fracture of the right femur now status post intramedullary rodding postop day 0 today. Postop care per orthopedic. Patient will need adequate pain management. Please resume preop medications. Resume diet whenever okay with ortho. DVT prophylaxis: Lovenox. Will likely need to go to rehabilitation upon discharge.
[2016-12-03 08:42] LABS: PT 13.7 SEC (9.4-12.5)
[2016-12-03 08:51] LABS: ABSOLUTE BASOPHIL COUNT 0 /CUMM (0.0-0.2); ABSOLUTE EOSINOPHIL COUNT 0.1 /CUMM (0.0-0.7); ABSOLUTE GRANULOCYTE CT 9.3 /CUMM (1.4-6.5); ABSOLUTE LYMPH COUNT 1.1 /CUMM (1.2-3.4); ABSOLUTE MONOCYTE COUNT 1.4 /CUMM (0.10-0.60); BASOPHIL % 0.4 % (0.0-2.0); EOSINOPHIL % 0.9 % (0-5); GRANULOCYTE % 77.9 % (42.2-75.2); HEMATOCRIT 39.7 % (37-47); MEAN CORPUSCULAR HGB 31.3 PG (27.0-31.0); MEAN CORPUSCULAR HGB CONC 33.5 G/DL (33.0-37.0); MEAN CORPUSCULAR VOLUME 93.6 FL (81.0-99.0); MEAN PLATELET VOLUME 9.3 FL (7.4-10.4); PLATELET COUNT 274 /CUMM (130-400); RBC DISTRIBUTION WIDTH 13.8 % (11.5-14.5); RED BLOOD CELL CT 4.24 /CUMM (4.20-5.40)
[2016-12-03 12:00] VITALS: BP 118/56
[2016-12-03 14:49] VITALS: BP 124/70
--- NOTE | 2016-12-03 15:32 | Operative Report ---
Operative/Inv Procedure Report Surgery Date: 12/03/16 Name of Procedure: RIGHT FEMURE CEPHALOINTRAMEDULLARY RODDING Pre-Operative Diagnosis: RIGHT PENDING PATHOLOGIC FRACTURE Post-Operative Diagnosis: RIGHT FEMUR PENDING PATHOLOGIC FRACTURE Estimated Blood Loss: scant (150CC) Surgeon/Cartridge Maker: Damaris Anesthesia: general endotracheal tube Operative/Procedure Note Note: PATIENT BROUGHT TO THE OPERATING ROOM AND PUT TO SLEEP ON HER BED. SHE WAS THAN GENTLY TRANSFERRED TO THE FRACTURE TABLE AND PLACED IN LIGHT TRACTION.SHE WAS GIVEN CLINDAMYCIN DUE TO A PENICILLAN ALLERGY.RIGHT HIP WAS PREPPED AND DRAPED IN THE USUAL FASHION. SMALL INCISION MADE PROXIMAL TO THE TROCHANTER AND GUIDEWIRE PLACED . FLUOR SHOWED GOOD POSITION THAN PROXIMAL REAMING CARRIED OUT. GUIDE WIRE THAN PLACED TO KNEE. REAMING TO 11 CARRIED OUT. A [address] WITH LOCKING BOLT TO FEMORAL HEAD IT WAS THAN LOCKED DISTALLY. FINAL XRAYS SHOWED ANATOMIC ALIGNMENT. WOUNDS IRRIGATED CLOSED IN A LAYERED FASHION. DRY STERILE DRESSINGS APPLIED SENT TO [facility]ERY [facility].
--- NOTE | 2016-12-03 19:20 | Cons- Cardiology ---
General Information and HPI Consulting Request Date of Consult: 12/03/16 Requested By: MOHIT DARNELL MD Reason for Consult: Preoperative clearance prior to hip surgery Source of Information: patient, old records Exam Limitations: no limitations History of Present Illness: The patient is a 76 year old female with a history of HTN, breast cancer with recurrence and bone mets who presented with hip pain and a pathologic hip fracture. I was asked to see the patient for evaluation prior to possible hip surgery. The patient actually was taken to the OR prior to my having a chance to evaluate her. In hindsite, the patient denies any known history of cardiac disease. This morning, the patient had a preop ECG which showed atrial fibrilation and a rapid ventricular response rate. AT the present time she also complains of severe right anterior chest discomfort / breast discomfort which was not present prior to today's surgical procedure. Allergies/Medications Allergies: Coded Allergies: Penicillins (11/28/16) Home Med List: Aspirin (Aspirin*) 81 MG TAB.CHEW 81 MG PO DAILY HEART/BLOOD (Reported) Propranolol HCl 20 MG TABLET 0.5 TAB PO DAILY BP (Reported) Triamterene/Hydrochlorothiazid (Triamterene-Hctz 75-50 MG Tab) 75 MG-50 MG TABLET 0.5 TAB PO DAILY BP (Reported) Current Medications: Current Medications Sig/Matty Start time Last Medication Dose Route Stop Time Status Admin Acetaminophen 650 MG Q6P PRN 12/03 1130 AC PO Acetaminophen 1,000 MG .STK-MED ONE 12/03 0801 DC IV 12/03 0802 Acetaminophen 650 MG Q6P PRN 11/29 0145 DC PO Alprazolam 0.5 MG TIDPRN PRN 12/03 1130 AC PO 12/10 1129 Amlodipine Besylate 5 MG DAILY 12/04 1000 AC PO Amlodipine Besylate 5 MG DAILY 11/29 0300 DC 12/02 PO 1144 Aspirin 81 MG DAILY 12/04 1000 AC PO Aspirin 81 MG DAILY 11/29 1000 DC 12/02 PO 1144 Clindamycin 600 MG IQ8 12/03 1600 AC 12/03 Dextrose/Water 50 ML IV 12/04 0029 1717 Dextrose/Sodium 1,000 ML Q13H 12/03 1130 AC 12/03 Chloride IV 1815 Diazepam 2 MG TID PRN 12/03 1130 AC 12/03 PO 1630 Diazepam 2 MG TID PRN 12/02 1115 DC 12/02 PO 1143 Docusate Sodium 100 MG BID PRN 12/03 1130 AC PO Docusate Sodium 100 MG DAILY 12/02 2022 DC PO Enoxaparin Sodium 40 MG DAILY 12/04 1000 AC SC Fentanyl Citrate 200 MCG .STK-MED ONE 12/03 0800 DC IM 12/03 0801 Heparin Sodium 5,000 UNIT Q8 12/02 0951 DC 12/02 (Porcine) SC 2010 Ibuprofen 600 MG Q6P PRN 12/03 1130 AC PO Ibuprofen 600 MG Q6P PRN 12/01 0845 DC PO Magnesium Hydroxide 30 ML AT BEDTIME PRN 12/03 1130 AC PO Magnesium Hydroxide 30 ML AT BEDTIME PRN 12/02 2030 DC 12/02 PO 2040 Melatonin 5 MG AT BEDTIME 12/03 2200 AC PO Melatonin 5 MG AT BEDTIME 11/30 2200 DC 12/02 PO 2010 Midazolam HCl 2 MG .STK-MED ONE 12/03 0801 DC IM 12/03 0802 Morphine Sulfate 2 MG ONCE ONE 12/03 1445 DC 12/03 IV 12/03 1446 1501 Morphine Sulfate 2 MG Q4-6 PRN PRN 12/03 1130 AC 12/03 IV 1314 Propranolol HCl 10 MG DAILY 12/04 1000 AC PO Propranolol HCl 10 MG DAILY 11/29 1000 DC 12/02 PO 1144 Senna/Docusate Sodium 2 TAB DAILY 12/04 1000 AC PO Senna/Docusate Sodium 2 TAB DAILY 12/02 2022 DC PO Tramadol HCl 50 MG Q6P PRN 12/03 1130 AC 12/03 PO 1501 Tramadol HCl 50 MG Q6P PRN 12/01 0845 DC 12/02 PO 2010 Past History Travel History Traveled to [place] past 21 day No Medical History Blood Transfusion Hx: No Neurological: NONE EENT: NONE Cardiovascular: hypertension Respiratory: NONE Gastrointestinal: NONE Hepatic: NONE Renal: NONE Musculoskeletal: NONE Psychiatric: NONE Endocrine: NONE Blood Disorders: NONE 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 Surgical History Surgical History: lumpectomy Psychosocial History Smoking Status: Unknown If Ever Smoked ETOH Use: denies use Exam & Diagnostic Data Vital Signs and I&O Vital Signs Date Time Temp Pulse Resp B/P Pulse O2 O2 Flow FiO2 Ox Delivery Rate 12/03 1449 97.6 86 18 124/70 97 Room Air 12/03 0751 98.6 86 20 148/70 95 Room Air Intake & Output 12/03 1600 12/03 0800 12/03 0000 12/02 1600 12/02 0800 12/02 0000 Intake Total 240 480 700 200 100 Output Total 500 600 350 Balance 240 -20 100 -150 100 Intake, Oral 240 480 700 200 100 Output, Urine 500 600 350 Patient 150 lb Weight Physical Exam: General Appearance Alert, Oriented X3, Cooperative, No Acute Distress Skin No Rashes, No Breakdown, there is a big open ulcer on right side of chest, secondary to local metasasis to skin. HEENT Atraumatic, PERRLA, EOMI Neck Supple, No JVD Cardiovascular Normal S1, Normal S2, 1-2/6 systolic murmur Lungs Clear to Auscultation, Normal Air Movement Abdomen Soft, No Tenderness Neurological Normal Speech Extremities No Clubbing, No Cyanosis, No Edema Vascular Normal Pulses, Pulses Symmetrical Labs/[place]amonte Results: Laboratory Tests 12/03 12/03 0655 0650 Chemistry Sodium (137 - 145 mmol/L) 136 L Potassium (3.5 - 5.1 mmol/L) 4.2 Chloride (98 - 107 mmol/L) 97 L Carbon Dioxide (22 - 30 mmol/L) 28 Anion Gap (5 - 16) 11 BUN (7 - 17 mg/dL) 23 H Creatinine (0.5 - 1.0 mg/dL) 0.8 Estimated GFR (>60 ml/min) > 60 BUN/Creatinine Ratio (7 - 25 %) 28.8 H Coagulation PT (9.4 - 12.5 SEC) 13.7 H INR (0.90 - 1.19) 1.31 H Hematology CBC w Diff NO MAN DIFF REQ WBC (4.8 - 10.8 /CUMM) 12.0 H RBC (4.20 - 5.40 /CUMM) 4.24 Hgb (12.0 - 16.0 G/DL) 13.3 Hct (37 - 47 %) 39.7 MCV (81.0 - 99.0 FL) 93.6 MCH (27.0 - 31.0 PG) 31.3 H RDW (11.5 - 14.5 %) 13.8 Plt Count (130 - 400 /CUMM) 274 MPV (7.4 - 10.4 FL) 9.3 Gran % (42.2 - 75.2 %) 77.9 H Lymphocytes % (20.5 - 51.1 %) 9.0 L Monocytes % (1.7 - 9.3 %) 11.8 H Eosinophils % (0 - 5 %) 0.9 Basophils % (0.0 - 2.0 %) 0.4 Absolute Granulocytes (1.4 - 6.5 /CUMM) 9.3 H Absolute Lymphocytes (1.2 - 3.4 /CUMM) 1.1 L Absolute Monocytes (0.10 - 0.60 /CUMM) 1.4 H Absolute Eosinophils (0.0 - 0.7 /CUMM) 0.1 Absolute Basophils (0.0 - 0.2 /CUMM) 0 PUBS MCHC (33.0 - 37.0 G/DL) 33.5 03/03 2113 Chemistry Sodium (137 - 145 mmol/L) 131 L Potassium (3.5 - 5.1 mmol/L) 4.1 Chloride (98 - 107 mmol/L) 94 L Carbon Dioxide (22 - 30 mmol/L) 28 Anion Gap (5 - 16) 10 BUN (7 - 17 mg/dL) 22 H Creatinine (0.5 - 1.0 mg/dL) 0.8 Estimated GFR (>60 ml/min) > 60 BUN/Creatinine Ratio (7 - 25 %) 27.5 H Coagulation PT (9.4 - 12.5 SEC) 14.5 H INR (0.90 - 1.19) 1.39 H Hematology CBC w Diff NO MAN DIFF REQ WBC (4.8 - 10.8 /CUMM) 13.8 H RBC (4.20 - 5.40 /CUMM) 4.19 L Hgb (12.0 - 16.0 G/DL) 12.8 Hct (37 - 47 %) 38.8 MCV (81.0 - 99.0 FL) 92.6 MCH (27.0 - 31.0 PG) 30.7 RDW (11.5 - 14.5 %) 13.9 Plt Count (130 - 400 /CUMM) 305 MPV (7.4 - 10.4 FL) 8.9 Gran % (42.2 - 75.2 %) 79.7 H Lymphocytes % (20.5 - 51.1 %) 8.6 L Monocytes % (1.7 - 9.3 %) 9.9 H Eosinophils % (0 - 5 %) 1.1 Basophils % (0.0 - 2.0 %) 0.7 Absolute Granulocytes (1.4 - 6.5 /CUMM) 11.0 H Absolute Lymphocytes (1.2 - 3.4 /CUMM) 1.2 Absolute Monocytes (0.10 - 0.60 /CUMM) 1.4 H Absolute Eosinophils (0.0 - 0.7 /CUMM) 0.2 Absolute Basophils (0.0 - 0.2 /CUMM) 0.1 PUBS MCHC (33.0 - 37.0 G/DL) 33.1 Diagnostic Data EKG Results Atrial fibrillation with a rapid ventricular rate and non specific STT changes Assessment/Plan Assessment/Plan Assessment: 1. Atrial fibrillation of unknown duration; now resolved. 2. Breast cancer with bone mets and pathologic hip fracture. 3. HTN 4. [place] right chest / breast pain Recommendations: - Discussed with Dr. Gonzáles. - In view of the abnormal ECG today I would suggest monitoring the patient on telemetry to rule out further arrhythmias. - Check troponin x 2 - Echocardiogram to rule out structural heart disease and the possibility of pericardial effusion. - Consider the addition of low dose metoprolol to help prevent further occurence of atrial fibrillation. Consult Acknowledgment - Thank you for your consult request.
--- NOTE | 2016-12-03 19:56 | RADIOLOGY REPORT ---
EXAMINATION: XR HIP, RIGHT CLINICAL INFORMATION: Bone metastases. Fracture repair. COMPARISON: Radiographs of right hip from 11/30/2016. TECHNIQUE: Intraoperative C-arm fluoroscopic imaging of the right hip was utilized and multiple spot fluoroscopy images of the hip and femur were obtained. FLUOROSCOPY TIME: 45 seconds. FINDINGS: There is permeative osteolysis from metastasis involving the intertrochanteric and subtrochanteric regions of the right femur. The intraoperative fluoroscopic images were obtained during placement of a long intramedullary nail from an antegrade approach. The intramedullary nail, dynamic femoral neck screw and distal interlocking screw are in satisfactory position IMPRESSION: Intraoperative fluoroscopic imaging of the right hip and femur was utilized during placement of the intramedullary nail and dynamic neck screw.
--- NOTE | 2016-12-03 20:23 | NUR ---
1156 PATIENT BACK TO THE FLOOR FROM O.R. VSS, ON RA, NO S/O DISTRESS, PAIN MANAGED, A+O X3.
--- NOTE | 2016-12-03 20:24 | NUR ---
1900 PATIENT TRANSFERRED TO [address] [place] [address] PER MD ORDER. A+O X3, ON RA, PAIN MANAGED, VSS AND TACCHYCARDIC/ IRREGULAR RHYTHM. TRANSFERRED WITH RN, MD, PATIENT ON MONITOR DURING TRANSFER.
--- NOTE | 2016-12-04 05:53 | PN- Orthopedic ---
Subjective Subjective: Reports mostly right heel pain. Incisional pain seems controlled. Objective Vital Signs and I&Os Vital Signs Date Time Temp Pulse Resp B/P Pulse O2 O2 Flow FiO2 Ox Delivery Rate / 1449 97.6 86 18 124/70 97 Room Air 03/ 1200 98.2 88 18 118/56 94 Room Air Room Air 03/ 0751 98.6 86 20 148/70 95 Room Air Intake & Output 12/04 0800 / 0000 / 1600 / 0800 / 0000 / 1600 Intake Total 350 240 480 700 Output Total 500 500 600 Balance -150 240 -20 100 Intake, IV 300 Intake, Oral 50 240 480 700 Output, Urine 500 500 600 Patient 150 lb Weight Physical Exam: General - hearing impaired Extremities - warm bilaterally. right hip dressings c/d/i. calves soft and nontender b/l. unclear if her dorsiflexion / plantarflexion is somewhat limited or if she's just not understanding / following commands. otherwise sensation grossly intact. pulses palpable. Assessment/Plan Assessment/Plan This 76 year old with widespread metastatic disease to bone with significant bone destruction and erosion of the right proximal femur POD#1 s/p IM michelle R femur for pending pathologic fracture advance diet as tolerated consider heel protector / foam for reported discomfort pain control as needed sidra-operative antibiotics completed f/u labs lovenox - dvt ppx PT eval - partial weight bearing (nearly 50% is ok per ) dressing change on POD#2 primary management as by medical team will d/w
[2016-12-04 08:09] LABS: ABSOLUTE BASOPHIL COUNT 0 /CUMM (0.0-0.2); ABSOLUTE EOSINOPHIL COUNT 0.2 /CUMM (0.0-0.7); ABSOLUTE GRANULOCYTE CT 8.2 /CUMM (1.4-6.5); ABSOLUTE MONOCYTE COUNT 1.5 /CUMM (0.10-0.60); BASOPHIL % 0.4 % (0.0-2.0); EOSINOPHIL % 1.7 % (0-5); GRANULOCYTE % 75.3 % (42.2-75.2); MEAN CORPUSCULAR HGB 31.4 PG (27.0-31.0); MEAN CORPUSCULAR HGB CONC 33.2 G/DL (33.0-37.0); MEAN CORPUSCULAR VOLUME 94.5 FL (81.0-99.0); MEAN PLATELET VOLUME 9.2 FL (7.4-10.4); PLATELET COUNT 287 /CUMM (130-400); RBC DISTRIBUTION WIDTH 13.7 % (11.5-14.5); RED BLOOD CELL CT 3.24 /CUMM (4.20-5.40); WHITE BLOOD CELL COUNT 10.9 /CUMM (4.8-10.8)
[2016-12-04 08:15] VITALS: BP 120/58
--- NOTE | 2016-12-04 08:43 | PN- Housestaff ---
See Addendum Subjective Follow-up For: -Right hip pathological fracture -Right breast cancer with bone metastasis Tele-Events Since Last Visit: Atrial fibrillation with HR 100s-160s, no overnight events. Subjective: Patient seen and examined at bedside this AM. She is resting comfortably in bed and the MST just helped her off of the commode where she had a bowel movement ( no evidence of blood). Patient reports she has minimal to no pain, though her heel is rubbing against the bed and she is requesting a boot to protect it. Review of Systems Constitutional: Denies: chills, fever. EENTM: Denies: visual changes, nasal congestion. Cardiovascular: Denies: palpitations. Respiratory: Denies: cough. Gastrointestinal: Denies: abdominal pain, nausea. Genitourinary: Denies: hematuria. Musculoskeletal: Denies: joint pain. Skin: Denies: rash. Neurological/Psychological: Denies: confusion. Objective Last 24 Hrs of Vital Signs/I&O Vital Signs Date Time Temp Pulse Resp B/P Pulse O2 O2 Flow FiO2 Ox Delivery Rate 12/04 0815 98.5 108 18 120/58 92 Room Air 12/03 1449 97.6 86 18 124/70 97 Room Air 12/03 1200 98.2 88 18 118/56 94 Room Air Room Air Intake & Output 12/04 1600 12/04 0800 12/04 0000 Intake Total 525 350 Output Total 250 500 Balance 275 -150 Intake, IV 525 300 Intake, Oral 50 Output, Urine 250 500 Physical Exam General Appearance: Alert, Oriented X3, Cooperative, No Acute Distress Other Physical Findings: Skin: No Rashes, No Breakdown, No Significant Lesion HEENT: Atraumatic, PERRLA, EOMI, Mucous Membr. moist/pink Neck: Supple, No JVD Cardiovascular: Regular Rate, Normal S1, Normal S2, No Murmurs Lungs: Clear to Auscultation, Normal Air Movement Abdomen: Normal Bowel Sounds, Soft, No Tenderness Neurological: Normal Speech, Normal Tone, Sensation Intact, Cranial Nerves 3-12 NL, Reflexes 2+ Extremities: No Clubbing, No Cyanosis, No Edema, Normal Pulses Current Medications: Current Medications Sig/Matty Start time Last Medication Dose Route Stop Time Status Admin Acetaminophen 650 MG Q6P PRN 12/03 1130 AC PO Acetaminophen 650 MG Q6P PRN 11/29 0145 DC PO Alprazolam 0.5 MG TIDPRN PRN 12/03 1130 AC PO 12/10 1129 Amlodipine Besylate 5 MG DAILY 12/04 1000 AC PO Amlodipine Besylate 5 MG DAILY 11/29 0300 DC 12/02 PO 1144 Aspirin 81 MG DAILY 12/04 1000 AC PO Aspirin 81 MG DAILY 11/29 1000 DC 12/02 PO 1144 Clindamycin 600 MG IQ8 12/03 1600 DC 12/04 Dextrose/Water 50 ML IV 12/04 0029 0012 Dextrose/Sodium 1,000 ML Q13H 12/03 1130 DC 12/03 Chloride IV 1815 Diazepam 2 MG TID PRN 12/03 1130 AC 12/03 PO 1630 Diazepam 2 MG TID PRN 12/02 1115 DC 12/02 PO 1143 Docusate Sodium 100 MG BID PRN 12/03 1130 AC PO Enoxaparin Sodium 40 MG DAILY 12/04 1000 AC SC Heparin Sodium 5,000 UNIT Q8 12/02 0951 DC 12/02 (Porcine) SC 2011 Hydromorphone HCl 2 MG .STK-MED ONE 12/03 1127 DC IM 12/03 1128 Ibuprofen 600 MG Q6P PRN 12/03 1130 AC PO Ibuprofen 600 MG Q6P PRN 12/01 0845 DC PO Magnesium Hydroxide 30 ML AT BEDTIME PRN 12/03 1130 AC PO Magnesium Hydroxide 30 ML AT BEDTIME PRN 12/02 2030 DC 12/02 PO 2040 Melatonin 5 MG AT BEDTIME 12/03 2200 AC 12/03 PO 2041 Melatonin 5 MG AT BEDTIME 11/30 2200 DC 12/02 PO 2010 Metoprolol Tartrate 25 MG .STK-MED ONE 12/03 2343 DC PO 12/03 2344 Metoprolol Tartrate 12.5 MG ONCE ONE 12/03 2300 DC 12/03 PO 12/03 2301 2347 Morphine Sulfate 2 MG ONCE ONE 12/03 1445 DC 12/03 IV 12/03 1446 1501 Morphine Sulfate 2 MG Q4-6 PRN PRN 12/03 1130 AC 12/04 IV 0541 Propranolol HCl 10 MG DAILY 12/04 1000 AC PO Propranolol HCl 10 MG DAILY 11/29 1000 DC 12/02 PO 1144 Senna/Docusate Sodium 2 TAB DAILY 12/04 1000 AC PO Senna/Docusate Sodium 2 TAB DAILY 12/02 2022 DC PO Tramadol HCl 50 MG Q6P PRN 12/03 1130 AC 12/03 PO 1501 Tramadol HCl 50 MG Q6P PRN 12/01 0845 DC 12/02 PO 2010 Last 24 Hrs of Lab/Lamonte Results Last 24 Hrs of Labs/Mics: Laboratory Tests 12/04/16 0645: Anion Gap 8, Estimated GFR > 60, BUN/Creatinine Ratio 24.4, Troponin I < 0.01, CBC w Diff Pending, WBC Pending, RBC Pending, Hgb Pending, Hct Pending, MCV Pending, MCH Pending, RDW Pending, Plt Count Pending, MPV Pending, PUBS MCHC Pending 12/03/16 2147: Troponin I < 0.01 Orders Radiology Findings: Hip XRay: IMPRESSION: Intraoperative fluoroscopic imaging of the right hip and femur was utilized during placement of the intramedullary nail and dynamic neck screw. Assessment/Plan Assessment: Patient is a 76-year-old female with significant past medical history of hypertension, breast cancer in 2008, status post lumpectomy (without any radiotherapy and chemotherapy), recurrence and metastasis to bone presented with chief c/o unable to get up from bed. On admission CT chest, abdomen, pelvis, lower extremity 11/28/16 revealed IMPRESSION: 1. Large right sided breast cancer with satellite nodule and multiple bina metastases to the right axilla. Breast nodule left side. 2. Renal cell carcinoma, right kidney. (Metachronous primary) 3. Cholelithiasis. Probable chronic cholecystitis. 4. 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 5. Pathologic fracture of the proximal right femur. X-ray right femur and right hip 11/30/16 revealed RIGHT HIP: There is severe lytic moth eaten appearance of right proximal femur and the ischium with demineralization consistent with metastatic disease. However there is no visible acute fracture or dislocation seen. RIGHT FEMUR: The entire right femur is visualized. The proximal femur is abnormal and appears lytic with significant demineralization but no visible fracture. The mid and the distal femur is normal. The soft tissues are normal IMPRESSION: Abnormal right proximal femur suggestive of metastatic process. There is no fracture or dislocation involving right hip or the right femur. Problem list 1. Right femur pathologic fracture 2. Right-sided breast cancer with multiple metastasis to bone 3. Cholelithiasis with chronic cholecystitis 4. Hypertension 5. Right Renal cell carcinoma Plan #Right breast cancer with bone metastasis and right femur pathologic fracture -Patient refused any aggressive intervention including chemotherapy and radiotherapy in the past at time of diagnosis 2008 and presently -Patient wanted comfort care measures and hospice evaluation on admission, hospice team evaluated the patient for inpatient or facility placement but her life expectancy is for more than 2 month so she is only elligible for outpatient or home hospice -Patient POD#1, had long intramedullary cephalo-medullary nail operation yesterday, stable. -PT consult placed for OOB and ROM exercises -Waiting for long-term rehabilitation placement in [facility] -Patient has skin laceration of right breast, will continue dressing change BID -Continue pain management #Cholelithiasis with chronic cholecystitis -Patient is asymptomatic, normal alkaline phosphatase and bilirubin #Hypertension -Continue amlodipine 5 mg by mouth daily -Continue propranolol 10 mg daily by mouth -Continue aspirin by mouth 81 mg daily -Blood pressure is under control -Continue withholding home dose Lasix #Right Renal cell carcinoma -No signs of urinary tract obstruction at the moment -monitor BEP #Anxiety -Continue Valium 2 mg 3 times a day when necessary to help with anxiety and muscle spasm -Continue melatonin 5 mg at bedtime #Atrial fibrillation of unknown duration -Patient in atrial fibrillation with tachycardia overnight -echo pending, f/u results -cardio consult appreciated -consider low dose metoprolol -Code comfort -DVT prophylaxis Lovenox -Diet regular diet Consultation orthopedic surgery, cardiology Problem List: 1. Carcinoma of breast metastatic to bone 2. Pathologic fracture of femur 3. Breast cancer metastasized to bone 4. Hypertension Pain Ratin Pain Location: n/a Pain Goal: Remain pain free Pain Plan: Tylenol for mild pain, ultram for severe pain and IV morphine for break through pain. Tomorrow's Labs & Rationales: CBC (monitor H&H postop), BEP (monitor hyponatremia)
--- NOTE | 2016-12-04 09:15 | PN- Orthopedic ---
Subjective Subjective: PATIENT postop day#1 s/p right femoral intramedullary rodding for pending pathologic fracture doing well had episode of afib last night transferred to telemetry but doing fine this am. will have her get oob with PT today Objective Vital Signs and I&Os Vital Signs Date Time Temp Pulse Resp B/P Pulse O2 O2 Flow FiO2 Ox Delivery Rate 12/05 0715 98.5 108 18 120/58 92 Room Air 12/03 1449 97.6 86 18 124/70 97 Room Air / 1200 98.2 88 18 118/56 94 Room Air Room Air Intake & Output 12/04 1600 12/04 0800 12/04 0000 / 1600 12/03 0800 / 0000 Intake Total 525 350 240 480 Output Total 250 500 500 Balance 275 -150 240 -20 Intake, IV 525 300 Intake, Oral 50 240 480 Output, Urine 250 500 500 Patient 150 lb Weight Physical Exam: on physical exam dressing clean intact neuro intact good knee rom Assessment/Plan Assessment/Plan will get oob with PT wbat right femur with a walker ok to do gentle ROM hip and knee. 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 No Antibiotics Is Patient on Antibiotics? No
[2016-12-04 10:47] LABS: HEMATOCRIT 30.6 % (37-47)
--- NOTE | 2016-12-04 13:40 | PN- Cardiology ---
Subjective Subjective: Doing okay today. Last breast discomfort. Remains in atrial fibrillation with a mildly elevated rates. The patient is asymptomatic with respect to the arrhythmia. Objective Vital Signs and I&Os Vital Signs Date Time Temp Pulse Resp B/P Pulse O2 O2 Flow FiO2 Ox Delivery Rate 12/04 1037 108 120/58 12/04 1037 108 120/58 12/04 0815 98.5 108 18 120/58 92 Room Air 12/03 1449 97.6 86 18 124/70 97 Room Air Intake & Output 12/04 0000 12/03 1600 12/03 0000 Intake Total 525 350 240 480 Output Total 250 500 500 Balance 275 -150 240 -20 Intake, IV 525 300 Intake, Oral 50 240 480 Output, Urine 250 500 500 Patient 150 lb Weight Physical Exam: General Appearance Alert, Oriented X3, Cooperative, No Acute Distress Skin No Rashes, No Breakdown, there is a big open ulcer on right side of chest, secondary to local metasasis to skin. HEENT Atraumatic, PERRLA, EOMI Neck Supple, No JVD Cardiovascular Normal S1, Normal S2, 1-2/6 systolic murmur Lungs Clear to Auscultation, Normal Air Movement Abdomen Soft, No Tenderness Neurological Normal Speech Extremities No Clubbing, No Cyanosis, No Edema Vascular Normal Pulses, Pulses Symmetrical Current Medications: Current Medications Sig/Matty Start time Last Medication Dose Route Stop Time Status Admin Acetaminophen 650 MG Q6P PRN 12/03 1130 AC PO Alprazolam 0.5 MG TIDPRN PRN 12/03 1130 AC PO 12/10 1129 Amlodipine Besylate 5 MG DAILY 12/04 1000 AC 12/04 PO 1037 Aspirin 81 MG DAILY 12/04 1000 AC 12/04 PO 1036 Clindamycin 600 MG IQ8 12/03 1600 DC 12/04 Dextrose/Water 50 ML IV 12/04 0029 0012 Dextrose/Sodium 1,000 ML Q13H 12/03 1130 DC 12/03 Chloride IV 1815 Diazepam 2 MG TID PRN 12/03 1130 AC 12/04 PO 1042 Docusate Sodium 100 MG BID PRN 12/03 1130 AC PO Enoxaparin Sodium 40 MG DAILY 12/04 1000 AC 12/04 SC 1036 Ibuprofen 600 MG Q6P PRN 12/03 1130 AC PO Magnesium Hydroxide 30 ML AT BEDTIME PRN 12/03 1130 AC PO Melatonin 5 MG AT BEDTIME 12/03 2200 AC 12/03 PO 2041 Metoprolol Tartrate 12.5 MG BID 12/04 2199 UNVr PO Metoprolol Tartrate 25 MG .STK-MED ONE 12/03 2343 DC PO 12/03 2344 Metoprolol Tartrate 12.5 MG ONCE ONE 12/03 2300 DC 12/03 PO 12/03 2301 2347 Morphine Sulfate 2 MG ONCE ONE 12/03 1445 DC 12/03 IV 12/03 1446 1501 Morphine Sulfate 2 MG Q4-6 PRN PRN 12/03 1130 AC 12/04 IV 0541 Propranolol HCl 10 MG DAILY 12/04 1000 AC 12/04 PO 1037 Senna/Docusate Sodium 2 TAB DAILY 12/04 1000 AC 12/04 PO 1037 Tramadol HCl 50 MG Q6P PRN 12/03 1130 AC 12/04 PO 1042 Results Last 48 Hrs of Labs/Mics: Laboratory Tests 12/04/16 0645: Anion Gap 8, Estimated GFR > 60, BUN/Creatinine Ratio 24.4, Troponin I < 0.01, CBC w Diff NO MAN DIFF REQ, RBC 3.24 L, MCV 94.5, MCH 31.4 H, RDW 13.7, MPV 9.2, Gran % 75.3 H, Lymphocytes % 8.9 L, Monocytes % 13.7 H, Eosinophils % 1.7, Basophils % 0.4, Absolute Granulocytes 8.2 H, Absolute Lymphocytes 1.0 L, Absolute Monocytes 1.5 H, Absolute Eosinophils 0.2, Absolute Basophils 0, PUBS MCHC 33.2 12/03/16 2147: Troponin I < 0.01 12/03/16 0655: CBC w Diff NO MAN DIFF REQ, RBC 4.24, MCV 93.6, MCH 31.3 H, RDW 13.8, MPV 9.3, Gran % 77.9 H, Lymphocytes % 9.0 L, Monocytes % 11.8 H, Eosinophils % 0.9, Basophils % 0.4, Absolute Granulocytes 9.3 H, Absolute Lymphocytes 1.1 L, Absolute Monocytes 1.4 H, Absolute Eosinophils 0.1, Absolute Basophils 0, PUBS MCHC 33.5 12/03/16 0650: Anion Gap 11, Estimated GFR > 60, BUN/Creatinine Ratio 28.8 H, Calcium 11.1 H, Troponin I < 0.01, PT 13.7 H, INR 1.31 H 12/02/162112: Anion Gap 10, Estimated GFR > 60, BUN/Creatinine Ratio 27.5 H, PT 14.5 H, INR 1.39 H, CBC w Diff NO MAN DIFF REQ, RBC 4.19 L, MCV 92.6, MCH 30.7, RDW 13.9, MPV 8.9, Gran % 79.7 H, Lymphocytes % 8.6 L, Monocytes % 9.9 H, Eosinophils % 1.1, Basophils % 0.7, Absolute Granulocytes 11.0 H, Absolute Lymphocytes 1.2, Absolute Monocytes 1.4 H, Absolute Eosinophils 0.2, Absolute Basophils 0.1, PUBS MCHC 33.1 Assessment/Plan Assessment/Plan Assessment: 1. Paroxysmal Atrial fibrillation of unknown duration-since arriving on telemetry, the patient has been in atrial fibrillation with episodes of rapid ventricular rate. She remains entirely asymptomatic. 2. Breast cancer with bone mets and pathologic hip fracture. 3. HTN 4. Worening right chest / breast pain-improving Recommendations: -Keep the patient on telemetry for at least another 24 hours -Start metoprolol tartrate 0.5 mg twice a day -Echocardiogram pending -I had a long discussion with the patient and her family about the issue of long -term anticoagulation. For now, the patient is not anticoagulated view of her other issues. If anticoagulation is to be started, I believe that warfarin would be an appropriate choice in her case. The patient could be safely started on warfarin with a Lovenox bridge and that could be managed at the extended care facility. I will discuss this further with Dr. Steen prior to the final decision. Continue telemetry? Yes
[2016-12-04 15:31] VITALS: BP 110/54
--- NOTE | 2016-12-04 19:54 | ECHOCARDIOGRAM REPORT ---
SUSAN POLO Age: 76 : 1940 Gender: F Exam Date: 12/04/2016 11:08 Exam Location: [place] Ht (in): 66 Wt (lb): 150 BSA: 1.79 BP: 124 / 70 Ordering Physician: ALESHA ACOSTA MD Referring Physician: Blake Bourgeois MD Technologist: Dominique Queen [facility] Room Number: [id number] Indications: AFIB/FLUTTER Rhythm: Atrial fibrillation Technical Quality: Fair, Technically difficult study FINDINGS Left Ventricle Normal size left ventricle. No obvious regional wall motion abnormalities. Normal left ventricular ejection fraction estimated at 55-60%. Right Ventricle Mild right ventricular dilatation. Right Atrium Mild right atrial dilatation. Left Atrium Moderate left atrial dilatation. Mitral Valve Mitral valve thickened. Mild mitral regurgitation. Aortic Valve Trileaflet aortic valve. Diffuse thickening (sclerosis) of the aortic valve cusps without reduced excursion. Mild aortic regurgitation. Tricuspid Valve Tricuspid valve not well visualized, grossly normal. Mild-to- moderate tricuspid regurgitation. Right ventricular systolic pressure estimated at 44 mmHg. Pulmonic Valve Pulmonic valve not well visualized. Trace to mild pulmonic regurgitation. Pericardium Minimal pericardial effusion (normal variant). Great Vessels Aortic root and proximal ascending aorta not well visualized, grossly normal. CONCLUSIONS 1. This was a technically difficult and limited examination due to the patient's body habitus. 2. Aortic sclerosis is present with mild aortic insufficiency. 3. MItral leaflet thickening is present with mild mitral insufficiency and moderate left atrial enlargement. 4. A very small posterior pericardial effusion is present which is hemodynamically insignificant. 5. THe left ventricular chamber size and systolic function are normal. 6. Mild enlargement of the right heart chambers is present with mild tricuspid and pulmonic insufficiency and an estimated RV systolic pressure of 44 mmHg. 7. A followup examination is recommended when the patient's heart rate is better controlled. Blake Bourgeois M.D. (Electronically Signed) Final Date: 04 December 2016 19:54 MEASUREMENTS (Male / Female) Normal Values 2D ECHO LV Diastolic Diameter PLAX 4.3 cm 4.2 - 5.9 / 3.9 - 5.3 cm LV Systolic Diameter PLAX 2.8 cm 2.1 - 4.0 cm LV Fractional Shortening PLAX 34.9 % 25 - 46 % LV Ejection Fraction 2D Teich 64.4 % IVS Diastolic Thickness 1.0 cm LVPW Diastolic Thickness 1.1 cm LV Relative Wall Thickness 0.5 RV Internal Dim ED PLAX 2.8 cm 1.9 - 3.8 cm LVOT Diameter 1.8 cm Aortic Root Diameter 2.8 cm LA Systolic Diameter LX 4.2 cm 3.0 - 4.0 / 2.7 - 3.8 cm LA Volume 66.0 cm 18 - 58 / 22 - 52 cm Ascending Aorta Diameter 3.2 cm DOPPLER AV Peak Velocity 149.0 cm/s AV Peak Gradient 8.9 mmHg AV Mean Velocity 106.0 cm/s AV Mean Gradient 5.0 mmHg AV Velocity Time Integral 27.2 cm LVOT Peak Velocity 106.0 cm/s LVOT Peak Gradient 4.5 mmHg LVOT Mean Velocity 68.3 cm/s LVOT Mean Gradient 2.0 mmHg LVOT Velocity Time Integral 19.2 cm LVOT Stroke Volume 48.9 cm AV Area Cont Eq vti 1.8 cm AV Area Cont Eq pk 1.8 cm MV Peak Velocity 150.0 cm/s MV Peak Gradient 9.0 mmHg MV Mean Velocity 75.2 cm/s MV Mean Gradient 3.0 mmHg Mitral E Point Velocity 113.0 cm/s MV PHT Velocity 157.0 cm/s MV Deceleration Moody 724.0 cm/s MV Pressure Half Time 65.1 ms MV Area PHT 3.4 cm MV Deceleration Time 190.0 ms TR Peak Velocity 322.0 cm/s TR Peak Gradient 41.5 mmHg Right Atrial Pressure 5.0 mmHg Pulmonary Artery Systolic Pressu 46.5 mmHg Right Ventricular Systolic Press 46.5 mmHg PV Peak Velocity 118.0 cm/s PV Peak Gradient 5.6 mmHg PV Mean Velocity 74.3 cm/s PV Mean Gradient 3.0 mmHg PV Velocity Time Integral 20.0 cm LV E' Lateral Velocity 11.7 cm/s Mitral E to LV E' Lateral Ratio 9.7 LV E' Septal Velocity 7.3 cm/s Mitral E to LV E' Septal Ratio 15.5
[2016-12-04 22:26] VITALS: BP 124/60
--- NOTE | 2016-12-05 06:58 | PN- Housestaff ---
See Addendum Subjective Follow-up For: Paroxysmal atrial fibrillation with controlled HR Breast cancer with bone metastasis Pathological fracture s/p IM michelle of right femur HTN Tele-Events Since Last Visit: Atrial fibrillation HRs in the 100s, no overnight events. Subjective: Patient seen and examined at bedside this AM. She is resting comfortably in bed and reports no pain in the post-op region. She is content with the heel padding and excited for breakfast. Review of Systems Constitutional: Denies: chills, fever. EENTM: Denies: visual changes, hearing changes, nasal congestion. Cardiovascular: Denies: chest pain, palpitations. Respiratory: Denies: cough, short of breath. Gastrointestinal: Denies: abdominal pain, nausea. Genitourinary: Denies: dysuria. Musculoskeletal: Denies: back pain, joint pain. Skin: Denies: rash. Objective Last 24 Hrs of Vital Signs/I&O Vital Signs Date Time Temp Pulse Resp B/P Pulse O2 O2 Flow FiO2 Ox Delivery Rate 12/05 0859 103 120/68 12/05 0858 103 120/68 12/05 0825 98.6 103 20 120/68 93 Room Air 12/04 2226 98.1 96 22 124/60 92 Room Air 12/04 2125 101 124/60 12/04 1531 98.6 91 18 110/54 94 Intake & Output 12/05 1600 12/05 0800 12/05 0000 Intake Total 240 240 Output Total 600 300 200 Balance -600 -60 40 Intake, Oral 240 240 Number 0 Bowel Movements Output, Urine 600 300 200 Physical Exam General Appearance: Alert, Cooperative, No Acute Distress Skin: As noted by surgical PA, right hip surgical incision clean, dry HEENT: Atraumatic, PERRLA, Mucous Membr. moist/pink Neck: Supple Cardiovascular: Irregularly irregular Lungs: Clear to Auscultation, Normal Air Movement Abdomen: Normal Bowel Sounds, Soft, No Tenderness Neurological: Normal Speech, Normal Tone Extremities: No Clubbing, No Cyanosis, No Edema, No Tenderness/Swelling Vascular: Pulses Symmetrical Current Medications: Current Medications Sig/Matty Start time Last Medication Dose Route Stop Time Status Admin Acetaminophen 650 MG Q6P PRN 12/03 1130 AC PO Alprazolam 0.5 MG TIDPRN PRN 12/03 1130 AC PO 12/10 1129 Amlodipine Besylate 5 MG DAILY 12/04 1000 AC 12/05 PO 0858 Aspirin 81 MG DAILY 12/04 1000 AC 12/05 PO 0858 Diazepam 2 MG TID PRN 12/03 1130 AC 12/05 PO 0858 Docusate Sodium 100 MG BID PRN 12/03 1130 AC 12/05 PO 0900 Enoxaparin Sodium 40 MG DAILY 12/04 1000 AC 12/05 SC 0859 Ibuprofen 600 MG Q6P PRN 12/03 1130 AC PO Magnesium Hydroxide 30 ML AT BEDTIME PRN 12/03 1130 AC PO Melatonin 5 MG AT BEDTIME 12/03 2200 AC 12/04 PO 2125 Metoprolol Tartrate 12.5 MG BID 12/04 2200 AC 12/05 PO 0859 Morphine Sulfate 2 MG Q4-6 PRN PRN 12/03 1130 AC 12/04 IV 1902 Propranolol HCl 10 MG DAILY 12/04 1000 DC 12/04 PO 1037 Senna/Docusate Sodium 2 TAB DAILY 12/04 1000 AC 12/05 PO 0858 Tramadol HCl 50 MG Q6P PRN 12/03 1130 AC 12/05 PO 0857 Last 24 Hrs of Lab/[place] Results Last 24 Hrs of Labs/Mics: Laboratory Tests 12/05/16 0910: Anion Gap 12, Estimated GFR > 60, BUN/Creatinine Ratio 26.7 H, CBC w Diff NO MAN DIFF REQ, RBC 3.14 L, MCV 93.2, MCH 31.2 H, RDW 13.5, MPV 9.1, Gran % 78.7 H, Lymphocytes % 8.1 L, Monocytes % 11.9 H, Eosinophils % 0.9, Basophils % 0.4, Absolute Granulocytes 11.6 H, Absolute Lymphocytes 1.2, Absolute Monocytes 1.8 H, Absolute Eosinophils 0.1, Absolute Basophils 0.1, PUBS MCHC 33.4 Orders ECHO Findings: CONCLUSIONS 1. This was a technically difficult and limited examination due to the patient's body habitus. 2. Aortic sclerosis is present with mild aortic insufficiency. 3. MItral leaflet thickening is present with mild mitral insufficiency and moderate left atrial enlargement. 4. A very small posterior pericardial effusion is present which is hemodynamically insignificant. 5. THe left ventricular chamber size and systolic function are normal. 6. Mild enlargement of the right heart chambers is present with mild tricuspid and pulmonic insufficiency and an estimated RV systolic pressure of 44 mmHg. 7. A followup examination is recommended when the patient's heart rate is better controlled. Radiology Findings: Right Hip Xray: IMPRESSION: Intraoperative fluoroscopic imaging of the right hip and femur was utilized during placement of the intramedullary nail and dynamic neck screw. Assessment/Plan Assessment: Randa Mckeon is a pleasant 76 year old female with PMH HTN, breast cancer in 2009 status post lumpectomy without radiotherapy or chemotherapy, recurrence of breast cancer with metastasis to the bone, chronic cholecystitis and right renal cell carcinoma who presented to the ED on 11/29/16 with chief complaint of inability to get up from the bed. In ED, CT chest/abdomen/pelvis was done which showed metastases to right axilla, osteolytic bone metastasis, pathological fracture of proximal right femur and renal cell carcinoma of the right kidney. She was initially admitted to the general medicine floor but is currently being treated on the telemetry floor for the following issues: 1. Right breast cancer with bone metastasis and pathological fracture, right femur * CT on admission shows pathological fracture of proximal right femur * Patient POD #2 from right femur IM michelle by Dr. Edgar * Dressing chagned today, daily dressing changes to continue * Pain control with tylenol for mild pain, motrin for moderate pain, and ultram for severe pain (current pain score of 0)and morphine for breakthrough pain * Pathology pending, f/u report * PT evaluation ordered, awaiting placement at [facility] * OOBTC, continue ROM exercised * Continue right breast skibn laceration dressing change 2. New onset atrial fibrillation * Continuous telemetry monitoring * Continue metoprolol 12.5 mg PO BID for rate control, HR currently well controlled * Patient is poor candidate for anticoagulation given life expectancy (eval for hospice) and multiple medical issues * Prior attempts to call POA unsuccessful * Echo pending, f/u results * Cardio consult appreciated appreciated 3. Hospice evaluation * Patient requested comfort care as code status on admission * Hospice evaluated patient and suggest that since life expectance is more than 2 months she is only elligible for outpatient or home hospice 4. Cholelithiasis with chronic cholecystitis * Patient is asymptomatic, normal alkaline phosphatase and bilirubin 5. HTN * Continue norvasc 5 mg daily, metoprolol 12.5 mg PO BID * Monitor blood pressure Q shift, currently well controlled 6. Right renal cell carcinoma * No current s/s urinary tract obstruction 7. Anxiety * Continue valium 2 mg TID PRN anxiety 8. Constipation * Today patient endorsed lack of BM for several days * Suppository ordered * Continue daily PO laxatives COMFORT MEASURES Mild to severe pain pathway DVTP: Lovenox SC Problem List: 1. Carcinoma of breast metastatic to bone 2. Pathologic fracture of femur 3. Breast cancer metastasized to bone 4. Hypertension 5. Renal cell carcinoma 6. Closed femur fracture Pain Ratin Pain Location: n/a Pain Goal: Remain pain free Pain Plan: Tylenol for mild pain, motrin for moderate pain, and ultram for severe pain. Tomorrow's Labs & Rationales: CBC (monitor leukocytosis, monitor H&H), CBC (monitor hyponatremia, renal function) Problem List: 1. Carcinoma of breast metastatic to bone 2. Pathologic fracture of femur 3. Breast cancer metastasized to bone 4. Hypertension 5. Renal cell carcinoma 6. Closed femur fracture Pain Ratin Pain Location: n/a Pain Goal: Remain pain free Pain Plan: Tylenol for mild pain, motrin for moderate pain, and ultram for severe pain. Tomorrow's Labs & Rationales: CBC (monitor leukocytosis, monitor H&H), CBC (monitor hyponatremia, renal function)
--- NOTE | 2016-12-05 07:46 | PN- Orthopedic ---
Subjective Subjective: The patient was seen this morning postoperatively day #2. She reports that her pain is under adequate control and is eager to get out of bed this morning. She has no other complaints at the current time aside from being thirsty. Objective Vital Signs and I&Os Vital Signs Date Time Temp Pulse Resp B/P Pulse O2 O2 Flow FiO2 Ox Delivery Rate 12/04 2225 98.1 96 22 124/60 92 Room Air 12/04 2125 101 124/60 12/04 1531 98.6 91 18 110/54 94 12/04 1037 108 120/58 / 1037 108 120/58 / 0815 98.5 108 18 120/58 92 Room Air Intake & Output 12/05 0812/05 0000 12/04 1600 12/04 0000 / 1600 Intake Total 240 240 555 525 350 240 Output Total 300 200 500 250 500 Balance -60 40 55 275 -150 240 Intake, IV 75 525 300 Intake, Oral 240 240 480 50 240 Number 0 Bowel Movements Output, Urine 300 200 500 250 500 Patient 150 lb Weight Physical Exam: Gen.: Alert and in no obvious distress Skin: Warm and dry Extremities: Bilateral lower extremities are warm without calf tenderness or significant edema. Gross motor and sensory are intact. Right hip surgical dressing was changed and the incision is clean, dry, and intact without signs of infection. Assessment/Plan Assessment/Plan Assessment: 76-year-old female status post I MHS of right femoral fracture postoperative day #2. The patient is progressing as expected and her pain is under adequate control. Recommendations: Out of bed with physical therapy Continue DVT prophylaxis with Lovenox daily Daily dry dressing changes Continue care per primary team
[2016-12-05 08:25] VITALS: BP 120/68
[2016-12-05 10:33] LABS: ABSOLUTE BASOPHIL COUNT 0.1 /CUMM (0.0-0.2); ABSOLUTE EOSINOPHIL COUNT 0.1 /CUMM (0.0-0.7); ABSOLUTE GRANULOCYTE CT 11.6 /CUMM (1.4-6.5); ABSOLUTE LYMPH COUNT 1.2 /CUMM (1.2-3.4); ABSOLUTE MONOCYTE COUNT 1.8 /CUMM (0.10-0.60); BASOPHIL % 0.4 % (0.0-2.0); EOSINOPHIL % 0.9 % (0-5); GRANULOCYTE % 78.7 % (42.2-75.2); HEMATOCRIT 29.2 % (37-47); MEAN CORPUSCULAR HGB 31.2 PG (27.0-31.0); MEAN CORPUSCULAR HGB CONC 33.4 G/DL (33.0-37.0); MEAN CORPUSCULAR VOLUME 93.2 FL (81.0-99.0); MEAN PLATELET VOLUME 9.1 FL (7.4-10.4); PLATELET COUNT 330 /CUMM (130-400); RBC DISTRIBUTION WIDTH 13.5 % (11.5-14.5); RED BLOOD CELL CT 3.14 /CUMM (4.20-5.40); WHITE BLOOD CELL COUNT 14.7 /CUMM (4.8-10.8)
--- NOTE | 2016-12-05 10:58 | PN- Cardiology ---
Subjective Subjective: The patient is comfortable. No palpitations. No chest pain. No shortness of breath. She remains in atrial fibrillation with controlled ventricular rate. Objective Vital Signs and I&Os Vital Signs Date Time Temp Pulse Resp B/P Pulse O2 O2 Flow FiO2 Ox Delivery Rate 12/05 0859 103 120/68 / 0858 103 120/68 / 0825 98.6 103 20 120/68 93 Room Air 12/04 2226 98.1 96 22 124/60 92 Room Air 12/04 2125 101 124/60 / 1531 98.6 91 18 110/54 94 Intake & Output 12/05 1600 12/05 0800 / 0000 12/04 1600 12/04 0800 12/04 0000 Intake Total 240 240 555 525 350 Output Total 300 200 500 250 500 Balance -60 40 55 275 -150 Intake, IV 75 525 300 Intake, Oral 240 240 480 50 Number 0 Bowel Movements Output, Urine 300 200 500 250 500 Physical Exam: Gen: NAD HEENT: normal Lungs: clear to auscultation, normal resp. effort Heart: Irregularly irregular, S1, S2, 1/6 systolic murmur Abdomen: Soft, nontender, no masses Extremities: No clubbing, cyanosis, or edema. Neuro: Alert and oriented x 3, cranial nerves intact Current Medications: Current Medications Sig/Matty Start time Last Medication Dose Route Stop Time Status Admin Acetaminophen 650 MG Q6P PRN 12/03 1130 AC PO Alprazolam 0.5 MG TIDPRN PRN 12/03 1130 AC PO 12/10 1129 Amlodipine Besylate 5 MG DAILY 12/04 1000 AC 12/05 PO 0858 Aspirin 81 MG DAILY 12/04 1000 AC 12/05 PO 0858 Diazepam 2 MG TID PRN 12/03 1130 AC 12/05 PO 0858 Docusate Sodium 100 MG BID PRN 12/03 1130 AC 12/05 PO 0900 Enoxaparin Sodium 40 MG DAILY 12/04 1000 AC 12/05 SC 0859 Ibuprofen 600 MG Q6P PRN 12/03 1130 AC PO Magnesium Hydroxide 30 ML AT BEDTIME PRN 12/03 1130 AC PO Melatonin 5 MG AT BEDTIME 12/03 2200 AC 12/04 PO 2125 Metoprolol Tartrate 12.5 MG BID 12/04 220 AC 12/05 PO 0859 Morphine Sulfate 2 MG Q4-6 PRN PRN 12/03 1130 AC 12/04 IV 1902 Propranolol HCl 10 MG DAILY 12/04 1000 DC 12/04 PO 1037 Senna/Docusate Sodium 2 TAB DAILY 12/04 1000 AC 12/05 PO 0858 Tramadol HCl 50 MG Q6P PRN 12/03 1130 AC 12/05 PO 0857 Results Last 48 Hrs of Labs/Mics: Laboratory Tests 12/05/16 0910: Anion Gap 12, Estimated GFR > 60, BUN/Creatinine Ratio 26.7 H, CBC w Diff Pending, WBC Pending, RBC Pending, Hgb Pending, Hct Pending, MCV Pending, MCH Pending, RDW Pending, Plt Count Pending, MPV Pending, PUBS MCHC Pending 12/04/16 0645: Anion Gap 8, Estimated GFR > 60, BUN/Creatinine Ratio 24.4, Troponin I < 0.01, CBC w Diff NO MAN DIFF REQ, RBC 3.24 L, MCV 94.5, MCH 31.4 H, RDW 13.7, MPV 9.2, Gran % 75.3 H, Lymphocytes % 8.9 L, Monocytes % 13.7 H, Eosinophils % 1.7, Basophils % 0.4, Absolute Granulocytes 8.2 H, Absolute Lymphocytes 1.0 L, Absolute Monocytes 1.5 H, Absolute Eosinophils 0.2, Absolute Basophils 0, PUBS MCHC 33.2 12/03/16 2147: Troponin I < 0.01 Assessment/Plan Assessment/Plan 1. Paroxysmal atrial fibrillation, rate under control 2. Breast cancer with bone metastases and pathologic fracture 3. Hypertension Plan: * Continue metoprolol for rate control * Not on anticoagulation for now because of multiple medical issues and evaluation for possible hospice. * Continue aspirin while off anticoagulation * If the decision is made to proceed with anticoagulation, warfarin could be started with Lovenox bridging Continue telemetry? Yes
[2016-12-05 15:00] VITALS: BP 126/58
--- NOTE | 2016-12-05 16:10 | Event Note ---
Event Note Event Note: 3:45 PM: Long discussion was held with patient in regards to her atrial fibrillation and anticoagulation. Patient reports that she makes her own medical decisions and no other individual determines management plans for her. Patient is made aware that she continues to remain in atrial fibrillation and anticoagulation is generally indicated. All of the risks and benefit of warfarin (as this is the agent cardiology suggested) were discussed in length. Patient is requesting no aggressive or exceptional measures and believes anticoagulation is agressive. Therefore, she is refusing anticoagulation at this time and accepts all of the risks of remaining off of AC.
--- NOTE | 2016-12-05 20:43 | NUR ---
PT ARRIVED TO THE FLOOR AT APPROX 2000 VIA ED; PT WAS A/Ox3, ON RA, AND ON THEIR HEART MONITOR; PT AMBULATED FROM STRETCHER TO BED WITH NO ASSISTANCE WITH NO COMPLAINTS OF PAIN OR SOB; PT HAS SLIGHT INSPIRATORY WHEEZES WHICH SHE STATES IS FROM A COLD SHE HAS HAD FOR A FEW DAYS; PT HAS HEPARIN GTT RUNNING AT 15.8
--- NOTE | 2016-12-06 06:57 | PN- Housestaff ---
See Addendum Subjective Follow-up For: Amlodipine 10 mg by mouth daily -Atenolol 25 mg by mouth daily Tele-Events Since Last Visit: Atrial fibrillation, HR 95-112, episode of tachycardia to 150s/160s around 340 AM requring 1 x 5mg IV lopressor push. She was noted to be tachycardic again to 150s/160s this AM around 8 am requiring another 5 mg IV lopressor push. Subjective: Patient seen and examined at bedside this AM. She is lethargic and is not engaging myself or my observer in discussion/review of systems. Patient was noted to be in pain overnight requiring a 1 x dose of 2mg IV morphine at [address] Esparza was contacted this AM as he had questions regarding Randa's care. Dr. Esparza is requesting that patient be placed in a rehab facility close to [facility] as that is where himself and 3 of Randa's friends are located and this will be the most convenient for them to visit. Dr. Esparza also reports that he would pursue anticoagulation if he were Randa in the setting of her new onset atrial fibrillation, however Randa does have capacity to make her own decisions. He will discuss with her again the risks and benefits of anticoagulation and if she changes her mind and decides to pursue AC, she will make me aware prior to discharge. Review of Systems Constitutional: Reports: see HPI. Objective Last 24 Hrs of Vital Signs/I&O Vital Signs Date Time Temp Pulse Resp B/P Pulse O2 O2 Flow FiO2 Ox Delivery Rate 12/06 0748 99.1 142 20 140/70 92 Room Air 12/06 0425 122 132/70 12/06 0000 94 12/05 2138 122 126/70 12/05 1600 Room Air 12/05 1555 Room Air Room Air 12/05 1500 97.9 100 20 126/58 96 Room Air 12/05 0859 103 120/68 12/05 0858 103 120/68 Intake & Output 12/06 1600 12/06 0800 / 0000 Intake Total 620 480 Output Total Balance 620 480 Intake, Oral 620 480 Physical Exam General Appearance: Cooperative, No Acute Distress, Lethargic, not engaging in questioning. Skin: No Significant Lesion, Skin at sight of procedural incision clean, dry and covered with dry bandage. HEENT: Atraumatic, EOMI, Dry mucous membranes Neck: Supple, No JVD Cardiovascular: Irregularly irregular Lungs: Clear to Auscultation, Normal Air Movement Abdomen: Normal Bowel Sounds, Soft, No Tenderness Neurological: Normal Speech, Normal Tone Extremities: No Clubbing, No Cyanosis, No Edema Vascular: Pulses Symmetrical Current Medications: Current Medications Sig/Matty Start time Last Medication Dose Route Stop Time Status Admin Acetaminophen 650 MG Q6P PRN 12/03 1130 AC PO Alprazolam 0.5 MG TIDPRN PRN 12/03 1130 AC PO 12/10 1129 Amlodipine Besylate 5 MG DAILY 12/04 1000 AC 12/05 PO 0858 Aspirin 81 MG DAILY 12/04 1000 AC 12/05 PO 0858 Bisacodyl 10 MG ONCE ONE 12/05 1415 DC 12/05 CT 12/05 1416 1431 Diazepam 2 MG TID PRN 12/03 1130 AC 12/05 PO 0858 Docusate Sodium 100 MG .STK-MED ONE 12/05 0915 DC PO 12/05 0916 Docusate Sodium 100 MG BID PRN 12/03 1130 AC 12/05 PO 0900 Enoxaparin Sodium 40 MG DAILY 12/04 1000 AC 12/05 SC 0859 Ibuprofen 600 MG Q6P PRN 12/03 1130 AC PO Magnesium Hydroxide 30 ML AT BEDTIME PRN 12/03 1130 AC PO Melatonin 5 MG AT BEDTIME 12/03 2200 AC 12/05 PO 2138 Metoprolol Tartrate 5 MG ONCE ONE 12/06 0815 DC IV 12/06 0816 Metoprolol Tartrate 5 MG ONCE ONE 12/06 0415 DC 03/ IV 12/06 0416 0425 Metoprolol Tartrate 12.5 MG BID 12/04 2200 AC 12/05 PO 2138 Morphine Sulfate 2 MG ONCE ONE 12/06 0400 DC 12/06 IV 12/06 0401 0349 Morphine Sulfate 2 MG Q4-6 PRN PRN 12/03 1130 AC 12/06 IV 0118 Senna/Docusate Sodium 2 TAB DAILY 12/04 1000 AC 12/05 PO 0858 Tramadol HCl 50 MG Q6P PRN 12/03 1130 AC 12/05 PO 2137 Last 24 Hrs of Lab/Lamonte Results Last 24 Hrs of Labs/Mics: Laboratory Tests 12/05/16 0910: Anion Gap 12, Estimated GFR > 60, BUN/Creatinine Ratio 26.7 H, CBC w Diff NO MAN DIFF REQ, RBC 3.14 L, MCV 93.2, MCH 31.2 H, RDW 13.5, MPV 9.1, Gran % 78.7 H, Lymphocytes % 8.1 L, Monocytes % 11.9 H, Eosinophils % 0.9, Basophils % 0.4, Absolute Granulocytes 11.6 H, Absolute Lymphocytes 1.2, Absolute Monocytes 1.8 H, Absolute Eosinophils 0.1, Absolute Basophils 0.1, PUBS MCHC 33.4 Orders ECHO Findings: CONCLUSIONS 1. This was a technically difficult and limited examination due to the patient's body habitus. 2. Aortic sclerosis is present with mild aortic insufficiency. 3. MItral leaflet thickening is present with mild mitral insufficiency and moderate left atrial enlargement. 4. A very small posterior pericardial effusion is present which is hemodynamically insignificant. 5. THe left ventricular chamber size and systolic function are normal. 6. Mild enlargement of the right heart chambers is present with mild tricuspid and pulmonic insufficiency and an estimated RV systolic pressure of 44 mmHg. 7. A followup examination is recommended when the patient's heart rate is better controlled. Radiology Findings: Hip XRay: IMPRESSION: Intraoperative fluoroscopic imaging of the right hip and femur was utilized during placement of the intramedullary nail and dynamic neck screw. Assessment/Plan Assessment: Randa Mckeon is a pleasant 76 year old female with PMH HTN, breast cancer in 2009 status post lumpectomy without radiotherapy or chemotherapy, recurrence of breast cancer with metastasis to the bone, chronic cholecystitis and right renal cell carcinoma who presented to the ED on 11/29/16 with chief complaint of inability to get up from the bed. In ED, CT chest/abdomen/pelvis was done which showed metastases to right axilla, osteolytic bone metastasis, pathological fracture of proximal right femur and renal cell carcinoma of the right kidney. She was initially admitted to the general medicine floor but is currently being treated on the telemetry floor for the following issues: 1. Right breast cancer with bone metastasis and pathological fracture, right femur * CT on admission shows pathological fracture of proximal right femur * Patient POD #3 from right femur IM michelle by Dr. Edgar * Daily dressing changes to continue * Pain control with tylenol for mild pain, motrin for moderate pain, and ultram for severe pain (current pain score of 0)and morphine for breakthrough pain * Will add Oxycontin CR tab 15 mg PO Q12 for improved pain control * Pathology pending, f/u report * PT evaluation ordered, awaiting placement at [facility] ([facility] in [facility] proximity to [facility]) * Social work consult placed for discharge planning purposes * OOBTC, continue ROM exercised * Continue right breast skin laceration dressing change 2. New onset atrial fibrillation * Continuous telemetry monitoring * Increase metoprolol to 25 mg PO BID for improved rate control, HR currently not optimized as patient has been tachycardic overnight/this AM * Patient currently decided against anticoagulation, however POA Dr. Esparza will like to reevaluate this topic with the patient. If she changes her mind, she will make us aware and we will start lovenox with bridging to warfarin. * Echo shows normal left ventricular systolic function, mildly enlarged right heart chambers, RV systolic pressure of 44 mmHg * Cardio consult appreciated 3. Hospice evaluation * Patient requested comfort care as code status on admission * Hospice evaluated patient and suggest that since life expectance is more than 2 months she is only elligible for outpatient or home hospice * Will reevaluate code status with patient today and consideration is for DNR/ DNI 4. Cholelithiasis with chronic cholecystitis * Patient is asymptomatic, normal alkaline phosphatase and bilirubin 5. HTN * Continue norvasc 5 mg daily, metoprolol 25 mg PO BID * Monitor blood pressure Q shift, currently well controlled 6. Right renal cell carcinoma * No current s/s urinary tract obstruction 7. Anxiety * Continue valium 2 mg TID PRN anxiety 8. Constipation * Yesterday, patient endorsed lack of BM for several days, suppository ordered * Continue daily PO laxatives COMFORT MEASURES Mild to severe pain pathway with PRN breakthrough medications DVTP: Lovenox SC Problem List: 1. Carcinoma of breast metastatic to bone 2. Pathologic fracture of femur 3. Hypertension 4. Renal cell carcinoma 5. Closed femur fracture 6. Breast cancer metastasized to bone 7. Atrial fibrillation 8. Tachycardia Pain Ratin Pain Location: Right hip s/p IM michelle Pain Goal: Pain 4 or less Pain Plan: IV morphine 2 mg Q4-6PRN for breakthrough pain, ultram for severe pain, motrin for moderate pain, tylenol for mild pain. Tomorrow's Labs & Rationales: CBC (monitoring WBC that is trending upwards), BEP (monitor hyponatremia)
[2016-12-06 07:48] VITALS: BP 140/70
--- NOTE | 2016-12-06 13:42 | PN- Cardiology ---
Subjective Subjective: The patient reports that she is feeling well. No new complaints. No shortness of breath. No palpitations. No diaphoresis. She remains in atrial fibrillation. She had an episode of rapid ventricular rate this morning, for which IV metoprolol was given. Objective Vital Signs and I&Os Vital Signs Date Time Temp Pulse Resp B/P Pulse O2 O2 Flow FiO2 Ox Delivery Rate 12/06 1247 142 140/70 12/06 0929 142 140/70 12/06 0928 142 140/70 12/06 0830 142 140/70 12/06 0748 99.1 142 20 140/70 92 Room Air / 0425 122 132/70 / 0000 94 12/05 2138 122 126/70 12/05 1600 Room Air 12/05 1555 Room Air Room Air 12/05 1500 97.9 100 20 126/58 96 Room Air Intake & Output 12/06 1600 12/06 0800 / 0000 12/05 1600 12/05 0800 / 0000 Intake Total 620 480 480 240 240 Output Total 1100 300 200 Balance 620 480 -620 -60 40 Intake, Oral 620 480 480 240 240 Number 0 Bowel Movements Output, Urine 1100 300 200 Physical Exam: Gen: NAD HEENT: normal Lungs: clear to auscultation, normal resp. effort Heart: Irregularly irregular, S1, S2, 1/6 systolic murmur Abdomen: Soft, nontender, no masses Extremities: No clubbing, cyanosis, or edema. Neuro: Alert and oriented x 3, cranial nerves intact Current Medications: Current Medications Sig/Matty Start time Last Medication Dose Route Stop Time Status Admin Acetaminophen 650 MG Q6P PRN 12/03 1130 AC PO Alprazolam 0.5 MG TIDPRN PRN 12/03 1130 AC 12/06 PO 12/10 1129 0928 Amlodipine Besylate 5 MG DAILY 12/04 1000 AC 12/06 PO 0928 Aspirin 81 MG DAILY 12/04 1000 AC 12/06 PO 0928 Bisacodyl 10 MG ONCE ONE 12/05 1415 DC 12/05 HI 12/05 1416 1431 Diazepam 2 MG TID PRN 12/03 1130 AC 12/05 PO 0858 Docusate Sodium 100 MG BID PRN 12/03 1130 AC 12/05 PO 0900 Enoxaparin Sodium 40 MG DAILY 12/04 1000 AC 12/06 SC 0928 Ibuprofen 600 MG Q6P PRN 12/03 1130 AC PO Magnesium Hydroxide 30 ML AT BEDTIME PRN 12/03 1130 AC PO Melatonin 5 MG AT BEDTIME 12/03 2200 AC 12/05 PO 2138 Metoprolol Tartrate 25 MG BID 12/06 1000 AC 12/06 PO 1247 Metoprolol Tartrate 5 MG ONCE ONE 12/06 0815 DC 12/06 IV 12/06 0816 0830 Metoprolol Tartrate 5 MG ONCE ONE 12/06 0415 DC 12/06 IV 12/06 0416 0425 Metoprolol Tartrate 12.5 MG BID 12/04 2200 DC 12/06 PO 0929 Morphine Sulfate 2 MG Q8P PRN 12/06 1100 AC IV Morphine Sulfate 2 MG ONCE ONE 12/06 0400 DC 12/06 IV 12/06 0401 0349 Morphine Sulfate 2 MG Q4-6 PRN PRN 12/03 1130 DC 12/06 IV 0928 Oxycodone HCl 15 MG Q12 12/06 1000 AC PO Senna/Docusate Sodium 2 TAB DAILY 12/04 1000 AC 12/06 PO 0928 Tramadol HCl 50 MG Q6P PRN 12/03 1130 AC 12/05 PO 2137 Results Last 48 Hrs of Labs/Mics: Laboratory Tests 12/05/16 0910: Anion Gap 12, Estimated GFR > 60, BUN/Creatinine Ratio 26.7 H, CBC w Diff NO MAN DIFF REQ, RBC 3.14 L, MCV 93.2, MCH 31.2 H, RDW 13.5, MPV 9.1, Gran % 78.7 H, Lymphocytes % 8.1 L, Monocytes % 11.9 H, Eosinophils % 0.9, Basophils % 0.4, Absolute Granulocytes 11.6 H, Absolute Lymphocytes 1.2, Absolute Monocytes 1.8 H, Absolute Eosinophils 0.1, Absolute Basophils 0.1, PUBS MCHC 33.4 Assessment/Plan Assessment/Plan 1. Paroxysmal atrial fibrillation, rate under control 2. Breast cancer with bone metastases and pathologic fracture 3. Hypertension Plan: * Metoprolol increased to 25 mg PO twice a day for additional rate control. * The patient declines anticoagulation for now. * Continue aspirin while off anticoagulation * If the decision is made to proceed with anticoagulation, warfarin could be started with Lovenox bridging Continue telemetry? Yes
--- NOTE | 2016-12-06 13:48 | Event Note ---
Event Note Event Note: Yesterday, the patient notify them nursing staff that even though she makes her own medical decisions, she she would like us to ask for opinion of her POA regarding anticoagulation before making final decision. Dr. Esparza was contacted this morning by Dr. Morales (supply chain intern) regarding patient's plan of care specifically his opinion about anticoagulation; he reported that he would pursue anticoagulation if he were will [place] in the setting of her new onset atrial fibrillation. Later today my attending notified me that Dr. Esparza came to the hospital, and discussion was held between patient, our attending Dr. Echols with Dr. Esparza present at bedside. Patient would like to pursue anticoagulation however she doesn't want to be on warfarin and she doesn't want to have frequent blood draws to check her INR. It was discussed with the patient at our cardiology service prefers warfarin as a method of anticoagulation. Patient would like to try a NOAC agents. Given patient's preference and her desire to avoid warfarin will start the patient on Eliquis 5 mg twice a day for nonvalvular atrial fibrillation.
[2016-12-06 17:48] LABS: ABSOLUTE BASOPHIL COUNT 0 /CUMM (0.0-0.2); ABSOLUTE EOSINOPHIL COUNT 0 /CUMM (0.0-0.7); ABSOLUTE GRANULOCYTE CT 30.9 /CUMM (1.4-6.5); ABSOLUTE LYMPH COUNT 1.3 /CUMM (1.2-3.4); ABSOLUTE MONOCYTE COUNT 3.1 /CUMM (0.10-0.60); BASOPHIL % 0 % (0.0-2.0); EOSINOPHIL % 0 % (0-5); GRANULOCYTE % 87.4 % (42.2-75.2); HEMATOCRIT 29.6 % (37-47); MEAN CORPUSCULAR HGB 31.1 PG (27.0-31.0); MEAN CORPUSCULAR HGB CONC 33.4 G/DL (33.0-37.0); MEAN CORPUSCULAR VOLUME 93.1 FL (81.0-99.0); MEAN PLATELET VOLUME 8.8 FL (7.4-10.4); PLATELET COUNT 358 /CUMM (130-400); RBC DISTRIBUTION WIDTH 13.7 % (11.5-14.5); RED BLOOD CELL CT 3.18 /CUMM (4.20-5.40)
[2016-12-06 17:50] LABS: WHITE BLOOD CELL COUNT 35.3 /CUMM (4.8-10.8)
[2016-12-07] VITALS: BP 108/64
--- NOTE | 2016-12-07 07:08 | PN- Housestaff ---
JOY MCKEON,NEAL 12/07/16 0708: Subjective Follow-up For: Paroxysmal atrial fibrillation with controlled HR Breast cancer with bone metastasis Pathological fracture s/p IM michelle of right femur HTN Tele-Events Since Last Visit: Atrial fibrillation, HR 80s-90s, no overnight events. Subjective: Patient seen and examined at bedside this AM. SHe is resting comfortably in bed and more alert than previously. She continues to report she has not had a bowel movement even after the suppository, though she denies any abdominal pain, fever , chills, nausea or cramps. Patient is amenable to discharge to [facility]. Review of Systems Constitutional: Denies: chills, fever, malaise. EENTM: Denies: visual changes, nasal congestion. Cardiovascular: Denies: chest pain, palpitations. Respiratory: Denies: cough, short of breath. Gastrointestinal: Reports: constipation. Denies: abdominal pain, bloating, diarrhea, distention, nausea, vomiting. Genitourinary: Denies: dysuria, hematuria. Musculoskeletal: Denies: back pain, joint pain. Skin: Denies: rash. Neurological/Psychological: Denies: confusion, headache. Hematologic/Endocrine: Denies: bruising, bleeding. Immunologic/Allergic: Denies: splenectomy. Objective Last 24 Hrs of Vital Signs/I&O Vital Signs Date Time Temp Pulse Resp B/P Pulse O2 O2 Flow FiO2 Ox Delivery Rate 12/07 0924 96 112/60 12/07 0924 96 112/60 08 0800 97.5 96 20 112/60 93 /08 0000 97.6 98 20 108/64 94 Room Air 12/06 2128 98 108/64 12/06 1613 98.4 88 20 93 Room Air 12/06 1247 142 140/70 Intake & Output 12/07 1600 08 0800 /08 0000 Intake Total 200 350 Output Total 300 400 Balance -100 -50 Intake, IV 0 0 Intake, Oral 200 350 Number 0 0 Bowel Movements Output, Urine 300 400 Physical Exam General Appearance: Alert, Cooperative, No Acute Distress Skin: Right hip dressing clean, dry and without signs fo erythema HEENT: Atraumatic, PERRLA, Dry mucous membranes Neck: Supple, +2 Carotid Pulse wo Bruit Lymphatic: Cervical nl Cardiovascular: Irregularly irregular Lungs: Clear to Auscultation, Normal Air Movement Abdomen: Normal Bowel Sounds, Soft, No Tenderness Neurological: Normal Speech, Normal Tone Extremities: No Clubbing, No Cyanosis, No Tenderness/Swelling Vascular: Pulses Symmetrical Current Medications: Current Medications Sig/Matty Start time Last Medication Dose Route Stop Time Status Admin Acetaminophen 650 MG Q6P PRN 12/03 1130 AC PO Alprazolam 0.5 MG TIDPRN PRN 12/03 1130 AC 12/07 PO 12/10 1129 0924 Amlodipine Besylate 5 MG DAILY 12/04 1000 AC 12/07 PO 0924 Apixaban 5 MG BID 12/06 2200 AC 12/07 PO 0924 Aspirin 81 MG DAILY 12/04 1000 DC 12/07 PO 0924 Bisacodyl 10 MG ONCE ONE 12/07 0730 DC 12/07 W[place] 12/07 0731 0959 Diazepam 2 MG TID PRN 12/03 1130 AC 12/06 PO 2133 Docusate Sodium 100 MG BID PRN 12/03 1130 AC 12/05 PO 0900 Enoxaparin Sodium 40 MG DAILY 12/04 1000 DC 12/06 SC 0928 Ibuprofen 600 MG Q6P PRN 12/03 1130 AC PO Magnesium Hydroxide 30 ML AT BEDTIME PRN 12/03 1130 AC PO Melatonin 5 MG AT BEDTIME 12/03 2200 AC 12/06 PO 2128 Metoprolol Tartrate 5 MG .STK-MED ONE 12/06 1815 DC IV 12/06 1816 Metoprolol Tartrate 25 MG BID 12/06 1000 AC 12/07 PO 0924 Morphine Sulfate 2 MG Q8P PRN 12/06 1100 AC IV Oxycodone HCl 15 MG Q12 12/06 1000 AC 12/07 PO 0925 Senna/Docusate Sodium 2 TAB DAILY 12/04 1000 AC 12/07 PO 0924 Tramadol HCl 50 MG Q6P PRN 12/03 1130 AC 12/05 PO 2137 Last 24 Hrs of Lab/Lamonte Results Last 24 Hrs of Labs/Mics: Laboratory Tests 12/07/16 0700: Anion Gap 8, Estimated GFR > 60, BUN/Creatinine Ratio 37.8 H, CBC w Diff NO MAN DIFF REQ, RBC 3.05 L, MCV 93.3, MCH 31.6 H, RDW 14.3, MPV 8.6, Gran % 85.2 H, Lymphocytes % 5.9 L, Monocytes % 8.3, Eosinophils % 0.5, Basophils % 0.1, Absolute Granulocytes 22.3 H, Absolute Lymphocytes 1.5, Absolute Monocytes 2.2 H, Absolute Eosinophils 0.1, Absolute Basophils 0, PUBS MCHC 33.8 12/06/16 1654: Anion Gap 12, Estimated GFR 54 L, BUN/Creatinine Ratio 32.0 H, CBC w Diff MAN DIFF ORDERED, RBC 3.18 L, MCV 93.1, MCH 31.1 H, RDW 13.7, MPV 8.8, Gran % 87.4 H, Lymphocytes % 3.7 L, Monocytes % 8.9, Eosinophils % 0, Basophils % 0 L, Absolute Granulocytes 30.9 H, Segmented Neutrophils 89 H, Band Neutrophils 1, Absolute Lymphocytes 1.3, Lymphocytes 4 L, Monocytes 6, Absolute Monocytes 3.1 H, Absolute Eosinophils 0, Absolute Basophils 0, Platelet Estimate ADEQUATE, Normocytic RBCs VERIFIED, Poikilocytosis RARE, Anisocytosis 1+, PUBS MCHC 33.4, Fld Total RBCs Counted 100 Microbiology 12/07 0954 STOOL: Clostridium difficile Toxin A & B - COLB Orders ECHO Findings: CONCLUSIONS 1. This was a technically difficult and limited examination due to the patient's body habitus. 2. Aortic sclerosis is present with mild aortic insufficiency. 3. MItral leaflet thickening is present with mild mitral insufficiency and moderate left atrial enlargement. 4. A very small posterior pericardial effusion is present which is hemodynamically insignificant. 5. THe left ventricular chamber size and systolic function are normal. 6. Mild enlargement of the right heart chambers is present with mild tricuspid and pulmonic insufficiency and an estimated RV systolic pressure of 44 mmHg. 7. A followup examination is recommended when the patient's heart rate is better controlled. Assessment/Plan Assessment: Randa Mckeon is a pleasant 76 year old female with PMH HTN, breast cancer in 2009 status post lumpectomy without radiotherapy or chemotherapy, recurrence of breast cancer with metastasis to the bone, chronic cholecystitis and right renal cell carcinoma who presented to the ED on 11/29/16 with chief complaint of inability to get up from the bed. In ED, CT chest/abdomen/pelvis was done which showed metastases to right axilla, osteolytic bone metastasis, pathological fracture of proximal right femur and renal cell carcinoma of the right kidney. She was initially admitted to the general medicine floor but is currently being treated on the telemetry floor for the following issues: 1. Right breast cancer with bone metastasis and pathological fracture, right femur * CT on admission shows pathological fracture of proximal right femur * Patient POD #4 from right femur IM michelle by Dr. Edgar * Daily dressing changes to continue * Pain control with tylenol for mild pain, motrin for moderate pain, and ultram for severe pain (current pain score of 0)and morphine for breakthrough pain * Continue Oxycontin CR tab 15 mg PO Q12 for improved pain control * Pathology pending * OOBTC, continue ROM exercised * Continue right breast skin laceration dressing change * Patient currently has a bed at [facility], we will discharge her here after constipation resolved (patient s/p her second enema today as well as senna, colace, miralax) 2. New onset atrial fibrillation * Continuous telemetry monitoring * Continue metoprolol to 25 mg PO BID for improved rate control, HR better controlled on this dosage * Patient previously refused warfarin, however she is amenable to a NOAC and has agreed to eliquis 5 mg PO BID (started yesterday), continue after discharge * Echo shows normal left ventricular systolic function, mildly enlarged right heart chambers, RV systolic pressure of 44 mmHg * Cardio consult appreciated 3. Hospice evaluation * Patient requested comfort care as code status on admission * Hospice evaluated patient and suggest that since life expectance is more than 2 months she is only elligible for outpatient or home hospice * Patient's code status reevaluated yesterday and she changed code status to DNR /DNI 4. Cholelithiasis with chronic cholecystitis * Patient is asymptomatic, normal alkaline phosphatase and bilirubin 5. HTN * Continue norvasc 5 mg daily, metoprolol 25 mg PO BID * Monitor blood pressure Q shift, currently well controlled 6. Right renal cell carcinoma * No current s/s urinary tract obstruction 7. Anxiety * Continue valium 2 mg TID PRN anxiety 8. Constipation * Patient currently on an intense bowel regimen and s/p 1 suppository yesterday without BM * Patient given another suppository today * We have ordered AXR along with UA and CDiff, follow results 9. Leukocytosis * ?Possibly leukomoid reaction? constipation with stressors? * Repet WBC today trended down from 35.3 to 26.2, no signs or symptoms of infectious etiology, afebrile, no need to pancultuer COMFORT MEASURES Mild to severe pain pathway with PRN breakthrough medications DVTP: Lovenox SC Problem List: 1. Carcinoma of breast metastatic to bone 2. Pathologic fracture of femur 3. Breast cancer metastasized to bone 4. Hypertension 5. Renal cell carcinoma 6. Atrial fibrillation 7. Tachycardia Pain Ratin Pain Location: n/a Pain Goal: Remain pain free Pain Plan: Oxycontin 15 mg PO Q12, morphine 2 mg IV Q8P PRN for breakthrogh pain, ultram 50 mg PO Q6P for severe pain, motrin for moderate pain. Tomorrow's Labs & Rationales: CBC (?leukomoid reaction), BEP (monitor hyponatremia) KAY RAMSEY MD 12/07/16 1017: Attending MD Review Statement Attending Statement Attending MD Statement: examined this patient, discuss w/resident/PA/MECHANICAL MAINTENANCE FOREMAN, agreed w/resident/PA/MECHANICAL MAINTENANCE FOREMAN, reviewed EMR data (avail) Attending Assessment/Plan: 76F PMH metastatic breast cancer not wishing for treatment, pathological fracture of right hip s/p repair on 12/03, with new onset atrial fibrillation. Patient feels well, no complaints, pain controlled, stable vitals. Had discussion yesterday with patient and her POA, Dr. Lane. Patient refuses to take Coumadin as she does not want to go for blood tests. She is agreeable to Eliquis however. The goals of care for her is to return to her baseline functional status, with long-term care and eventual hospice. The patient and POA wish for physical rehab at this time to assist with this, and continuation of all medications for now. She remains DNR/DNI and does not wish for heroic measures or invasive procedures unless they will improve the quality of her life. Patient developed leukocytosis of 35 yesterday, repeat today is 26. She is afebrile and has no complaints or signs of infection. She has, however, not had a bowel movement since admission Plan - Continue aggressive bowel regimen, repeat enema - Obtain abdominal x-ray to evaluate for potential blockage - Send UA - Continue Metoprolol to 25mg BID - Follow cardiology recommendations - Continue Eliquis. May discontinue ASA. - Continue home medications - Recheck CBC tomorrow. If leukocytosis improves and patient has BM can be discharged to [facility]
[2016-12-07] MEDS ORDERED: DOCUSATE SODIU100 M3 PO (07:18)
[2016-12-07 08:00] VITALS: BP 112/60
[2016-12-07 08:00] LABS: ABSOLUTE BASOPHIL COUNT 0 /CUMM (0.0-0.2); ABSOLUTE EOSINOPHIL COUNT 0.1 /CUMM (0.0-0.7); ABSOLUTE GRANULOCYTE CT 22.3 /CUMM (1.4-6.5); ABSOLUTE LYMPH COUNT 1.5 /CUMM (1.2-3.4); ABSOLUTE MONOCYTE COUNT 2.2 /CUMM (0.10-0.60); BASOPHIL % 0.1 % (0.0-2.0); EOSINOPHIL % 0.5 % (0-5); HEMATOCRIT 28.5 % (37-47); MEAN CORPUSCULAR HGB 31.6 PG (27.0-31.0); MEAN CORPUSCULAR HGB CONC 33.8 G/DL (33.0-37.0); MEAN CORPUSCULAR VOLUME 93.3 FL (81.0-99.0); MEAN PLATELET VOLUME 8.6 FL (7.4-10.4); PLATELET COUNT 366 /CUMM (130-400); RBC DISTRIBUTION WIDTH 14.3 % (11.5-14.5); RED BLOOD CELL CT 3.05 /CUMM (4.20-5.40); WHITE BLOOD CELL COUNT 26.2 /CUMM (4.8-10.8)
[2016-12-07 09:17] LABS: GRANULOCYTE % 85.2 % (42.2-75.2)
[2016-12-07] MEDS ORDERED: MS CONTIN30 M1 PO (09:23)
--- NOTE | 2016-12-07 14:59 | RADIOLOGY REPORT ---
EXAMINATION: XR ABDOMEN MULTIPLE VIEWS CLINICAL INDICATION: Constipation, impaction. No bowel movement in greater than one week. COMPARISON: CT abdomen and pelvis 11/28/2016 TECHNIQUE: Supine views of the abdomen and pelvis FINDINGS: Bowel gas pattern is nonobstructive. There is a moderate amount of stool throughout the colon. There are airspace opacities in the bilateral lung bases which may reflect small effusions. IMPRESSION: Moderate amount of stool in the colon. Probable small bilateral pleural effusions.
--- NOTE | 2016-12-07 15:40 | NUR ---
Physical Therapy. Pt refusing PT treatment despite encouragement and option of bedlevel therex. Pt falling asleep while speaking with therapist. PT will f/u as appropriate.
[2016-12-07 16:47] VITALS: BP 110/70
--- NOTE | 2016-12-07 19:15 | PN- Cardiology ---
Subjective Subjective: Clinically unchanged from a cardiovascular standpoint. Awaiting placement. Objective Vital Signs and I&Os Vital Signs Date Time Temp Pulse Resp B/P Pulse O2 O2 Flow FiO2 Ox Delivery Rate 12/07 1647 98.3 95 20 110/70 93 Room Air 12/07 0924 96 112/60 12/07 0924 96 112/60 12/07 0800 97.5 96 20 112/60 93 03/08 0000 97.6 98 20 108/64 94 Room Air 12/06 2128 98 108/64 Intake & Output 12/07 1600 12/07 0812/07 0000 12/06 1600 12/06 0812/06 0000 Intake Total 725 200 350 300 620 480 Output Total 800 300 400 200 Balance -75 -100 -50 100 620 480 Intake, IV 0 0 Intake, Oral 725 200 350 300 620 480 Number 0 0 0 Bowel Movements Output, Urine 800 300 400 200 Current Medications: Current Medications Sig/Matty Start time Last Medication Dose Route Stop Time Status Admin Acetaminophen 650 MG Q6P PRN 12/03 1130 AC PO Alprazolam 0.5 MG TIDPRN PRN 12/03 1130 AC 12/07 PO 12/10 1129 0924 Amlodipine Besylate 5 MG DAILY 12/04 1000 AC 12/07 PO 0924 Apixaban 5 MG BID 12/06 2200 AC 12/07 PO 0924 Aspirin 81 MG DAILY 12/04 1000 DC 12/07 PO 0924 Bisacodyl 10 MG ONCE ONE 12/07 0730 DC 12/07 OR 12/07 0731 0959 Diazepam 2 MG TID PRN 12/03 1130 AC 12/06 PO 2133 Docusate Sodium 100 MG BID PRN 12/03 1130 AC 12/05 PO 0900 Ibuprofen 600 MG Q6P PRN 12/03 1130 AC PO Lactulose 1 BOT ONCE ONE 12/07 1600 CAN OR 12/07 1601 Magnesium Hydroxide 30 ML AT BEDTIME PRN 12/03 1130 AC PO Melatonin 5 MG AT BEDTIME 12/03 2200 AC 12/06 PO 2128 Metoprolol Tartrate 25 MG BID 12/06 1000 AC 12/07 PO 0924 Morphine Sulfate 2 MG Q8P PRN 12/06 1100 AC IV Oxycodone HCl 15 MG Q12 12/06 1000 AC 12/07 PO 0925 Senna/Docusate Sodium 2 TAB DAILY 12/04 1000 AC 12/07 PO 0924 Tramadol HCl 50 MG Q6P PRN 12/03 1130 AC 12/05 PO 2137 Results Last 48 Hrs of Labs/Mics: Laboratory Tests 12/07/16 0700: Anion Gap 8, Estimated GFR > 60, BUN/Creatinine Ratio 37.8 H, CBC w Diff NO MAN DIFF REQ, RBC 3.05 L, MCV 93.3, MCH 31.6 H, RDW 14.3, MPV 8.6, Gran % 85.2 H, Lymphocytes % 5.9 L, Monocytes % 8.3, Eosinophils % 0.5, Basophils % 0.1, Absolute Granulocytes 22.3 H, Absolute Lymphocytes 1.5, Absolute Monocytes 2.2 H, Absolute Eosinophils 0.1, Absolute Basophils 0, PUBS MCHC 33.8 12/06/16 1654: Anion Gap 12, Estimated GFR 54 L, BUN/Creatinine Ratio 32.0 H, CBC w Diff MAN DIFF ORDERED, RBC 3.18 L, MCV 93.1, MCH 31.1 H, RDW 13.7, MPV 8.8, Gran % 87.4 H, Lymphocytes % 3.7 L, Monocytes % 8.9, Eosinophils % 0, Basophils % 0 L, Absolute Granulocytes 30.9 H, Segmented Neutrophils 89 H, Band Neutrophils 1, Absolute Lymphocytes 1.3, Lymphocytes 4 L, Monocytes 6, Absolute Monocytes 3.1 H, Absolute Eosinophils 0, Absolute Basophils 0, Platelet Estimate ADEQUATE, Normocytic RBCs VERIFIED, Poikilocytosis RARE, Anisocytosis 1+, PUBS MCHC 33.4, Fld Total RBCs Counted 100 Assessment/Plan Assessment/Plan Assessment: 1. Paroxysmal Atrial fibrillation She remains entirely asymptomatic. 2. Breast cancer with bone mets and pathologic hip fracture. 3. HTN 4. Worening right chest / breast pain-improving Recommendations: -Continue metoprolol tartrate 12.5 mg twice a day -Echocardiogram noted -Continue Eliquis at current dose -Outpatient followup with me as needed Continue telemetry? Yes
[2016-12-08 00:45] VITALS: BP 130/50
--- NOTE | 2016-12-08 05:58 | NUR ---
Following patients progress. Patient had surgery on 12/03/16. Bed has been secured by patient/POA at [facility] in [place]. Please call if other social work needs arise.
--- NOTE | 2016-12-08 06:53 | PN- Housestaff ---
See Addendum Subjective Follow-up For: Paroxysmal atrial fibrillation with controlled HR Breast cancer with bone metastasis Pathological fracture s/p IM michelle of right femur HTN Tele-Events Since Last Visit: Atrial fibrillation, HR 86-126, no overnight events. Subjective: Patient seen and examined at bedside this AM. She is excited about discharge today and is requesting that if she works with physical therapy, she only has male physical therapists as she does not believe the females will be able to support her weight. Of note, patient had 1 bowel movement yesterday and 1 this morning. Review of Systems Constitutional: Reports: malaise. Denies: chills, fever. EENTM: Denies: visual changes. Cardiovascular: Denies: chest pain, palpitations. Respiratory: Denies: cough, short of breath. Gastrointestinal: Denies: abdominal pain. Genitourinary: Denies: hematuria. Musculoskeletal: Denies: joint pain. Skin: Denies: rash. Neurological/Psychological: Denies: confusion. Hematologic/Endocrine: Denies: bleeding. Objective Last 24 Hrs of Vital Signs/I&O Vital Signs Date Time Temp Pulse Resp B/P Pulse O2 O2 Flow FiO2 Ox Delivery Rate 12/08 0045 98.4 106 20 130/50 99 Room Air 12/07 2135 109 142/70 12/07 1647 98.3 95 20 110/70 93 Room Air 12/07 0924 96 112/60 12/07 0924 96 112/60 Intake & Output 12/08 1600 12/08 0800 12/08 0000 Intake Total 120 Output Total Balance 120 Intake, Oral 120 Number 2 1 Bowel Movements Physical Exam General Appearance: Alert, Cooperative, No Acute Distress Skin: Right hip clean dressing, no signs of bleeding HEENT: Atraumatic, EOMI Neck: Supple, No JVD Lymphatic: Cervical nl Cardiovascular: Irregularly irregular Lungs: Normal Air Movement Abdomen: Normal Bowel Sounds, Soft, No Tenderness Neurological: Patient does not want to participate in strength testing or range of motion testing, specifically of the lower extremities. Extremities: No Clubbing, No Cyanosis, No Edema Vascular: Pulses Symmetrical Current Medications: Current Medications Sig/Matty Start time Last Medication Dose Route Stop Time Status Admin Acetaminophen 650 MG Q6P PRN 12/03 1130 AC PO Alprazolam 0.5 MG TIDPRN PRN 12/03 1130 AC 12/07 PO 12/10 1129 0924 Amlodipine Besylate 5 MG DAILY 12/04 1000 AC 12/07 PO 0924 Apixaban 5 MG BID 12/06 2200 AC 12/07 PO 2130 Aspirin 81 MG DAILY 12/04 1000 DC 12/07 PO 0924 Diazepam 2 MG TID PRN 12/03 1130 AC 12/06 PO 2133 Docusate Sodium 100 MG BID PRN 12/03 1130 AC 12/05 PO 0900 Ibuprofen 600 MG Q6P PRN 12/03 1130 AC PO Lactulose 1 BOT ONCE ONE 12/07 1600 CAN NJ 12/07 1601 Magnesium Hydroxide 30 ML AT BEDTIME PRN 12/03 1130 AC PO Melatonin 5 MG AT BEDTIME 12/03 2200 AC 12/07 PO 2130 Metoprolol Tartrate 25 MG BID 12/06 1000 AC 12/07 PO 2135 Morphine Sulfate 2 MG Q8P PRN 12/06 1100 AC IV Oxycodone HCl 15 MG Q12 12/06 1000 AC 12/07 PO 2130 Senna/Docusate Sodium 2 TAB DAILY 12/04 1000 AC 12/07 PO 0924 Tramadol HCl 50 MG Q6P PRN 12/03 1130 AC 12/07 PO 2232 Last 24 Hrs of Lab/[place] Results Last 24 Hrs of Labs/Mics: Laboratory Tests 12/08/16 0640: Anion Gap 9, Estimated GFR > 60, BUN/Creatinine Ratio 47.1 H, CBC w Diff Pending, WBC Pending, RBC Pending, Hgb Pending, Hct Pending, MCV Pending, MCH Pending, RDW Pending, Plt Count Pending, MPV Pending, PUBS MCHC Pending Microbiology 12/08 714 STOOL: Clostridium difficile Toxin A & B - RECD Orders Radiology Findings: Abdominal Xray, 12/07/16: IMPRESSION: Moderate amount of stool in the colon. Probable small bilateral pleural effusions. Assessment/Plan Assessment: Randa Mckeon is a pleasant 76 year old female with PMH HTN, breast cancer in 2009 status post lumpectomy without radiotherapy or chemotherapy, recurrence of breast cancer with metastasis to the bone, chronic cholecystitis and right renal cell carcinoma who presented to the ED on 11/29/16 with chief complaint of inability to get up from the bed. In ED, CT chest/abdomen/pelvis was done which showed metastases to right axilla, osteolytic bone metastasis, pathological fracture of proximal right femur and renal cell carcinoma of the right kidney. She was initially admitted to the general medicine floor but is currently being treated on the telemetry floor for the following issues: 1. Right breast cancer with bone metastasis and pathological fracture, right femur * CT on admission shows pathological fracture of proximal right femur * Patient POD #5 from right femur IM michelle by Dr. 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 New onset atrial fibrillation * Continuous telemetry monitoring * Continue metoprolol to 25 mg PO BID (HR better controlled on this dosage) * Patient previously refused warfarin, however she is amenable to a NOAC and has agreed to eliquis 5 mg PO BID (started yesterday), continue after discharge * Echo shows normal left ventricular systolic function, mildly enlarged right heart chambers, RV systolic pressure of 44 mmHg * Cardio consult appreciated 3. Hospice evaluation * Patient requested comfort care as code status on admission * Hospice evaluated patient and suggest that since life expectance is more than 2 months she is only elligible for outpatient or home hospice * Patient's code status changed from comfort to DNR/DNI 4. Cholelithiasis with chronic cholecystitis * Patient is asymptomatic, normal alkaline phosphatase and bilirubin 5. HTN * Continue norvasc 5 mg daily, metoprolol 25 mg PO BID * Monitor blood pressure Q shift, currently well controlled 6. Right renal cell carcinoma * No current s/s urinary tract obstruction 7. Anxiety * Continue valium 2 mg TID PRN anxiety 8. Constipation * Patient currently on an intense bowel regimen and s/p 2 suppositories * She had 1 BM yesterday and 1 this AM * Abdominal Xray showed no impaction 9. Leukocytosis * ?Possibly leukomoid reaction? constipation with stressors? * Repet WBC today pending DNR/DNI Mild to severe pain pathway DVTP: Lovenox SC Regular diet Problem List: 1. Carcinoma of breast metastatic to bone 2. Pathologic fracture of femur 3. Hypertension 4. Renal cell carcinoma 5. Atrial fibrillation 6. Tachycardia Pain Ratin Pain Location: n/a Pain Goal: Remain pain free Pain Plan: IV morphine 2 mg Q8P for breakthrough pain, Oxycontin CR tab 15 mg PO Q12, motrin for mdoerate pain and tylenol for mild pain. Tomorrow's Labs & Rationales: Discharge today.
[2016-12-08 08:04] LABS: ABSOLUTE BASOPHIL COUNT 0.2 /CUMM (0.0-0.2); ABSOLUTE EOSINOPHIL COUNT 0.2 /CUMM (0.0-0.7); ABSOLUTE GRANULOCYTE CT 19.1 /CUMM (1.4-6.5); ABSOLUTE LYMPH COUNT 1.2 /CUMM (1.2-3.4); ABSOLUTE MONOCYTE COUNT 1.7 /CUMM (0.10-0.60); BASOPHIL % 0.8 % (0.0-2.0); EOSINOPHIL % 0.8 % (0-5); HEMATOCRIT 31.2 % (37-47); MEAN CORPUSCULAR VOLUME 93.9 FL (81.0-99.0); MEAN PLATELET VOLUME 8.6 FL (7.4-10.4); PLATELET COUNT 430 /CUMM (130-400); RBC DISTRIBUTION WIDTH 14.2 % (11.5-14.5); RED BLOOD CELL CT 3.33 /CUMM (4.20-5.40); WHITE BLOOD CELL COUNT 22.4 /CUMM (4.8-10.8)
[2016-12-08 08:30] VITALS: BP 120/60
[2016-12-08 09:09] LABS: GRANULOCYTE % 85.3 % (42.2-75.2)
[2016-12-08] MEDS ORDERED: TYLENOL325 M1 PO ×2 (10:51→13:41)
[2016-12-08] MEDS ORDERED: AMLODIPINE BESYL5 M1 PO (10:51)
[2016-12-08] MEDS ORDERED: ELIQUIS5 M1 PO (10:52)
[2016-12-08] MEDS ORDERED: MELATONIN5 M7 PO (10:55)
[2016-12-08] MEDS ORDERED: MILK OF MA400 MG/52 PO (10:55)
[2016-12-08] MEDS ORDERED: METOPROLOL TART25 M1 PO (10:56)
[2016-12-08] MEDS ORDERED: SENNA PLUS TAB1 EACH PO (10:56)
[2016-12-08] MEDS ORDERED: XANAX0.25 M1 PO (10:59)
--- NOTE | 2016-12-08 13:12 | NUR ---
PT REFUSING PT AT THIS TIME STATING"I AM NOT DOING ANYTHING. I AM BEING DISCHARGED TODAY"
--- NOTE | 2016-12-08 13:33 | NUR ---
UNABLE TO COLLECT URINALYSIS; DR. NEAL HAMILTON NOTIFIED; OK TO DISCHARGE PATIENT
[2016-12-08 13:36] VITALS: BP 130/80
[2016-12-08] MEDS ORDERED: TRAMADOL HCL50 M1 PO (13:40)
--- NOTE | 2016-12-08 20:07 | PN- Cardiology ---
Subjective Subjective: Clinically stable with no new symptoms Objective Vital Signs and I&Os Vital Signs Date Time Temp Pulse Resp B/P Pulse O2 O2 Flow FiO2 Ox Delivery Rate 12/08 1336 98.1 90 16 130/80 12/08 1008 130/80 12/08 1008 130/80 12/08 0830 98.1 90 16 120/60 92 Room Air 12/08 0045 98.4 106 20 130/50 99 Room Air 12/07 2135 109 142/70 Intake & Output 12/08 1600 12/08 0000 12/07 1600 12/07 0000 Intake Total 120 725 200 350 Output Total 800 300 400 Balance 120 -75 -100 -50 Intake, IV 0 0 Intake, Oral 120 725 200 350 Number 2 1 0 0 0 Bowel Movements Output, Urine 800 300 400 Current Medications: Current Medications Sig/Matty Start time Last Medication Dose Route Stop Time Status Admin Acetaminophen 650 MG Q6P PRN 12/03 1130 DCD PO Alprazolam 0.5 MG TIDPRN PRN 12/03 1130 DCD 12/07 PO 12/10 1129 0924 Amlodipine Besylate 5 MG DAILY 12/04 1000 DCD 12/08 PO 1008 Apixaban 5 MG BID 12/06 2200 DCD 12/08 PO 1008 Diazepam 2 MG TID PRN / 1130 DCD 12/06 PO 2133 Docusate Sodium 100 MG BID PRN 03/ 1130 DCD 12/05 PO 0900 Ibuprofen 600 MG Q6P PRN / 1130 DCD PO Magnesium Hydroxide 30 ML AT BEDTIME PRN 03/ 1130 DCD PO Melatonin 5 MG AT BEDTIME 12/03 2200 DCD 03 PO 2130 Metoprolol Tartrate 25 MG BID 12/06 1000 DCD 12/08 PO 1008 Morphine Sulfate 2 MG Q8P PRN 03 1100 DCD IV Oxycodone HCl 15 MG Q12 12/06 1000 DCD 12/08 PO 1010 Senna/Docusate Sodium 2 TAB DAILY 12/04 1000 DCD 12/08 PO 1008 Tramadol HCl 50 MG Q6P PRN / 1130 DC 03 PO 2232 Results Last 48 Hrs of Labs/Mics: Laboratory Tests 12/08/16 0640: Anion Gap 9, Estimated GFR > 60, BUN/Creatinine Ratio 47.1 H, CBC w Diff NO MAN DIFF REQ, RBC 3.33 L, MCV 93.9, MCH 31.0, RDW 14.2, MPV 8.6, Gran % 85.3 H, Lymphocytes % 5.4 L, Monocytes % 7.7, Eosinophils % 0.8, Basophils % 0.8, Absolute Granulocytes 19.1 H, Absolute Lymphocytes 1.2, Absolute Monocytes 1.7 H, Absolute Eosinophils 0.2, Absolute Basophils 0.2, PUBS MCHC 33.0 03 0700: Anion Gap 8, Estimated GFR > 60, BUN/Creatinine Ratio 37.8 H, CBC w Diff NO MAN DIFF REQ, RBC 3.05 L, MCV 93.3, MCH 31.6 H, RDW 14.3, MPV 8.6, Gran % 85.2 H, Lymphocytes % 5.9 L, Monocytes % 8.3, Eosinophils % 0.5, Basophils % 0.1, Absolute Granulocytes 22.3 H, Absolute Lymphocytes 1.5, Absolute Monocytes 2.2 H, Absolute Eosinophils 0.1, Absolute Basophils 0, PUBS MCHC 33.8 Microbiology 12/08 0715 STOOL: Clostridium difficile Toxin A & B - COMP Assessment/Plan Assessment/Plan Assessment: 1. Paroxysmal Atrial fibrillation She remains entirely asymptomatic. 2. Breast cancer with bone mets and pathologic hip fracture. 3. HTN 4. Worening right chest / breast pain-improving Recommendations: -Continue metoprolol tartrate 12.5 mg twice a day -Echocardiogram noted -Continue Eliquis at current dose -Outpatient followup with me as needed -Discussed with patient and family Continue telemetry? No
== END 2016-12-08 14:10 | DRG 481 ==
LOC: ERH 15:48 → ERHI 23:03 → 2NB 23:03 → ERHI 11-29 05:51 → 2NB 11-29 06:00 → ENPENDDIS 11-30 12:15 → 2NB 11-30 12:15 → 1NO 11-30 12:15 → 2NB 11-30 13:34 → 1NO 12-03 19:10
PROVIDERS: Internal Medicine; Nurse Practitioner; Physician Assistant; Student in an Organized Health Care Education/Training Program; ADMIT Internal Medicine
PROC: 0QH806Z Insertion of Intramedullary Internal Fixation Device into Right Femoral Shaft, Open Approach (ICD-10-PCS; principal; 2016-12-03)
DX: M84.551A Pathological fracture in neoplastic disease, right femur, initial encounter for fracture (principal); C79.51 Secondary malignant neoplasm of bone; I48.0 Paroxysmal atrial fibrillation; K80.10 Calculus of gallbladder with chronic cholecystitis without obstruction; C64.1 Malignant neoplasm of right kidney, except renal pelvis; I48.91 Unspecified atrial fibrillation; E83.52 Hypercalcemia; C50.911 Malignant neoplasm of unspecified site of right female breast; I10 Essential (primary) hypertension; Z51.5 Encounter for palliative care; Z79.01 Long term (current) use of anticoagulants
CPT/HCPCS: 1NSP; 2NBSP; 36415; 73502-RT; 73552; 74020; 74177; 81003; 82436; 88305; 93005; 93010; 93306; 96374; 96376; 97162-GP; 97530-GO; J0131; J1644; J1650; J3360; J3490; J7042